=== PATIENT | male | born 1950 | race Caucasian/White ===

== ENCOUNTER 2017-08-01 20:11 | Inpatient (IN) | payer MEDICARE, OTHER ==
[~2017-08-01] VITALS: Ht 165.1 cm; Wt 70.6 kg
[~2017-08-01 20:11] MED LIST: ADULT LOW DOSE81 MG PO; ADVAIR 250-501 EACH IH; ADVAIR 500-501 EACH IH; ADVAIR 500-501 EACH INH; ALBUTEROL SULF8.5 GM INH; ALBUTEROL2.5 MG/3 M IH; ALBUTEROL2.5 MG/3 M INH; ASPIR-TRIN325 MG PO; ASPIRIN325 MG PO; AZITHROMYCIN500 MG PO; BENZONATATE100 MG PO; CEFUROXIME500 MG PO; CELEXA10 MG PO; CENTRAL-VITE H1 EACH PO; CITALOPRAM HBR10 MG PO; CLOTRIMAZOLE10 MG MM; CODEINE-GUAIFE120 ML PO; CYCLOBENZAPRINE10 MG PO; CYCLOBENZAPRINE5 MG PO; D3 DOTS2000 UNIT PO; DALIRESP500 MCG PO; DIFLUCAN100 MG PO; DOXYCYCLINE HY100 MG PO; FLEXERIL5 MG PO; FOLTX TABLET1 EAC1; HYDROCORTISO453.6 GM TOP; IBUPROFEN200 MG PO; IPRAT-ALBUT 0.5-3 ML INH; LEVALBUTER1.25 MG/0. INH; LEVAQUIN500 MG PO; LEVAQUIN750 MG PO; LEVOFLOXACIN500 MG PO; MULTI VITAMIN1 EACH PO; NICORETTE4 M1 BC; NICORETTE4 M1 BUCCAL; NYSTATIN100000 UN1 MT; NYSTATIN15 GM TOP; OMEPRAZOLE20 MG PO; OXISTAT TOP; OXISTAT TP; PREDNISONE10 MG PO; PREDNISONE20 MG PO; PREDNISONE5 MG PO; PROMETHAZINE-COD5 ML PO; SPIRIVA18 MCG IH; SPIRIVA18 MCG INH; SYNTHROID75 MCG PO; TESSALON PERLE100 MG PO; VENTOLIN HFA18 GM; VIAGRA100 MG PO; VITAMIN E1000 UNIT PO; XOPENEX CO1.25 MG/0. INH; XOPENEX1.25 MG/3 INH; [UNRECOGNIZED DRUG - OTHER]
[2017-08-01] MEDS ORDERED: LEVOTHYROXINE75 MCG PO (20:27)
[2017-08-01] MEDS ORDERED: DALIRESP500 MCG PO (20:28)
[2017-08-01] MEDS ORDERED: AZITHROMYCIN500 MG PO (20:30)
[2017-08-01] MEDS ORDERED: PREDNISONE20 MG PO (20:31)
[2017-08-01] MEDS ORDERED: CITALOPRAM HBR10 MG PO (20:34)
[2017-08-01] MEDS ORDERED: MUCINEX FAST-M180 M3 PO (20:37)
[2017-08-01] MEDS ORDERED: HYDROCODON-ACE1 EA10 PO (20:39)
--- NOTE | 2017-08-01 23:31 | NUR ---
REPORT RECV'D FROM RAKEL IN ER. PT TO BE TRANSPORTED TO ROOM 122.
--- NOTE | 2017-08-01 23:40 | NUR ---
PT ARRRIVED TO THE FLOOR VIA STRETCHER FROM ED. PT ABLE TO STAND AND TRANSFER SELF TO BED WITH STANDBY ASSIST. QUICK ADMISSION COMPLETED. WHEN ASKING PT ABOUT DESPOSITION OF VALUABLES, HE STATED HE HAD SOME AT BEDSIDE, DECLINED LOCKING IN SAFE WHEN ASKED. PT REQUESTED 02 EXTENSION TUBING, GIVEN. BOX LUCH GIVEN PER PT REQUEST. PULSE OX IN PLACE. TELE #[address]. PT DENIES DIZZINESS AT THIS TIME. PT ADVISED OKAY TO BE INDEPENDENT IN ROOM, ADVISED TO CALL IF DIZZINESS OCCURS. MD ORDERS REVIEWED. NO FURTHER NEEDS AT THIS TIME. CALL LIGHT IN PLACE.
--- NOTE | 2017-08-02 01:00 | NUR ---
IN TO CHECK ON PT. PT UP TO USE BATHROOM INDEPENDENTLY. NO FURTHER NEEDS AT THIS TIME. CALL LIGHT IN REACH.
--- NOTE | 2017-08-02 03:26 | NUR ---
IN TO CHECK ON PT. IV DISTAL OCC, ARM REPOSITIONED. PT ATTEMPTING TO SLEEP. ASSESSMENT COMPLETE. NO FURTHER NEEDS AT THIS TIME. CALL LIGHT IN REACH.
--- NOTE | 2017-08-02 06:05 | NUR ---
PT ADMITTED TO FLOOR DURING SHIFT FOR COPD. PT IS A CHRONIC HOME O2 USER. LUNG SOUNDS ARE DEMINISHED WITH CRACKLES HEARD IN THE RLL. PULSE OX IN PLACE, O2 PER NC @ 2.5L. PT ON TELE #8, SINUS TACHYCARDIA. TACHYCARDIA UP TO 120 BPM DURING ACTIVITY. REGULAR DIET, TOLERATES WELL. AAOX3, INDEPENDENT IN ROOM. CALL APPROP.
--- NOTE | 2017-08-02 09:40 | NUR ---
PT AWAKE IN BED, INDEPENDENT IN ROOM. PT DENIES PAIN OR NAUSEA. STATES BREATHING IS "WORSE THAN NORMAL BUT BETTER THAN WHEN I GOT HERE." EXPIRATORY WHEEZES, AND COURSE LUNG SOUNDS NOTED. PT SATTING 94% ON 2L NC. CALL LIGHT WITHIN REACH.
--- NOTE | 2017-08-02 13:34 | NUR ---
PT RESTING QUIETLY IN BED, EYES CLOSED, RESP EVEN AND UNLABORED.
--- NOTE | 2017-08-02 15:04 | NUR ---
PT RECIEVED LATE BREAKFAST SO IS HAVING LATE LUNCH AT THIS TIME. DENIES NEEDS OR CONCERNS. CALL LIGHT WITHIN REACH.
--- NOTE | 2017-08-02 18:15 | NUR ---
PT SITTING UP IN BED EATING DINNER INDEPENDENTLY. PT GIVEN CUP OF ICE PER PT REQUEST. SATTING 95% ON 2L NC. CALL LIGHT WITHIN REACH.
--- NOTE | 2017-08-02 19:10 | NUR ---
BEDSIDE REPORT RECEIVED FROM OFFGOING NURSE. PT SITTING UP IN BED, FINSHED DINNER. PT DENIES NEEDS AT THIS TIME. CALL LIGHT WITHIN REACH.
--- NOTE | 2017-08-02 21:00 | NUR ---
PT ASSESSMENT COMPLETE. PT REPORTS SOB WITH EXERTION. O2 IN PLACE AT 2.5 LPM. NEBULIZER TX ADMINISTERED. RHONCHI NOTED TO ALL LUNG LERMA, DO NOT CLEAR WITH COUGH. PT EXPERIENCING OCCASIONAL, DRY, NON-PRODUCTIVE COUGH. CONTINUOUS PULSE OX IN PLACE WITH SAO2 @ 94%. PT DENIES PAIN OR NAUSEA. DENIES OTHER NEEDS AT THIS TIME. CALL LIGHT WITHIN REACH.
--- NOTE | 2017-08-02 21:03 | EKG ---
[facility] [address] [place], [place] [address] Signed Sinus tachycardia Possible Left atrial enlargement Borderline ECG No previous ECGs available Confirmed by PRADEEP HOPKINS MD ([id number]) on 08/02/2017 9:03:05 PM Electronically Signed By: PRADEEP HOPKINS MD [id number]/02/[id number] PATIENT NAME: VALENTIN ENCISO Electrocardiogram DATE OF : 46 PHYSICIAN: PRADEEP HOPKINS MD REPORT #: [id number] REPORT IS CONFIDENTIAL AND NOT TO BE RELEASED WITHOUT AUTHORIZATION
--- NOTE | 2017-08-02 22:30 | NUR ---
PT UP TO USE THE BATHROOM. REQUESTS NEW FINGER SENSOR FOR PULSE OXIMETER AND HUMIDIFICATION FOR THE O2. BOTH PROVIDED. PT SITTING UP IN BED. STATES THAT HE IS GOING "TO SIT UP AND WATCH TV FOR A WHILE", AND THEN PLANS "TO GO TO BED". PT DENIES OTHER NEEDS AT THIS TIME. CALL LIGHT WITHIN REACH.
--- NOTE | 2017-08-03 00:30 | NUR ---
PT LYING IN BED WATCHING TV. SCHEDULED NEB ADMINISTERED. PT REQUESTS ASSISTANCE STRAIGHTENING BED OUT. DENIES SOB. PT CONTINUES TO HAVE INTERMITENT COUGH, STATES THAT HE IS STARTING TO PRODUCE SMALL AMOUNT OF MUCOUS. TESSALON ADMINISTERED. PT DENIES OTHER NEEDS AT THIS TIME. CALL LIGHT WITHIN REACH.
--- NOTE | 2017-08-03 03:29 | NUR ---
PT RESTING IN BED WITH EYES CLOSED. RESPIRATIONS EVEN AND UNLABORED. SA02 95%. PT SNORING AUDIBLY. APPEARS TO BE SLEEPING. CALL LIGHT WITHIN REACH.
--- NOTE | 2017-08-03 04:58 | NUR ---
PT AWAKE UNTIL AROUND MIDNIGHT. SLEPT WELL REST OF SHIFT. O2 @ 2.5 LPM. RHONCI OFF AND ON THROUGHOUT SHIFT. OCCASSIONAL PRODUCTIVE COUGH. CONTINOUS PULSE OX IN PLACE. SINUS TACH, INCREASES WITH MOVEMENT. REGULAR DIET. IND IN ROOM. UO QS. LR @ 100.
--- NOTE | 2017-08-03 05:42 | NUR ---
PT ASSESSMENT COMPLETE WHILE PT AWAKE. PT DENIES PAIN, NAUSEA, SOB. RHONCI CONTINUE TO ALL LUNG LERMA. DO NOT CLEAR WITH COUGH. PT DENIES COUGHING, STATES THAT HE HAS BEEN SLEEPING. O2 @ 2.5 LPM VIA NC. CONTINUOUS PULSE OX IN PLACE. PT DENIES NEEDS AT THIS TIME. FALLS BACK TO SLEEP EASILY. CALL LIGHT WITHIN REACH.
--- NOTE | 2017-08-03 07:15 | NUR ---
BEDSIDE HANDOFF REPORT RECEIVED FROM [facility] TEACHER RN. PT SLEEPING, LEFT UNDISTUBRED.
--- NOTE | 2017-08-03 09:09 | NUR ---
PT RESTING IN BED, EATIN BREAKFAST. PT LUNG SOUNDS WITH RHONCHI, COARSE AND DIMINISHED BASES. PT WITH OCCASIONAL COUGH. O2 SATS 96%. PT DENIES CHEST PAIN. PT TOLERATING REGULAR DIET. IV FLUIDS INFUSING AT 100 ML/HR. PT WITH TRACE EDEMA TO LLE, CMS INTACT. PT DENIES NEEDS AT THIS TIME.
--- NOTE | 2017-08-03 10:10 | NUR ---
ASSUMED CARE OF PT. RECIEVED FACE TO FACE REPORT FROM TELLO Antonio PT RESTING IN BED WATCHING TV. PULSE OX IN PLACE. 02 97% ON 2LNC, HR TACHY AT 110. PT ALERT AND ORIENTED. IV INFUSING WNL. DENIES NEEDS OR CONCERNS AT THIS TIME. CALL LIGHT WITHIN REACH. PT INDEPENDENT IN ROOM.
[2017-08-03] MEDS ORDERED: SUDOGEST60 MG PO (11:23)
[2017-08-03] MEDS ORDERED: SPIRIVA RESPIMAT4 GM INH (11:27)
[2017-08-03] MEDS ORDERED: PREDNISONE10 MG PO (11:30)
--- NOTE | 2017-08-03 13:10 | NUR ---
PT SITTING UP IN BED AWAKE. INDEPENDENT IN ROOM. VSS. PT DENIES NEEDS OR CONCERNS AT THIS TIME. CALL LIGHT WITHIN REACH.
--- NOTE | 2017-08-03 16:30 | NUR ---
PT RESTING IN BED WITH EYES CLOSED, RESP EVEN AND UNLABORED. SATTING 97% ON 2L NC.
--- NOTE | 2017-08-03 18:22 | NUR ---
PT SITTING UP IN BED EATING DINNER, WATCHING TV. DENIES NEEDS OR CONCERNS. CALL LIGHT WITHIN REACH.
--- NOTE | 2017-08-03 20:43 | NUR ---
PT IS SITTING UP ON EDGE OF BED PLAYING GAMES ON COMPUTER, IN GOOD SPIRITS, NO RESP DISTRESS, OCCASIONAL LOOSE COUGH. REMAINS AFEBRILE, SCHEDULED HS MEDS GIVEN. VEE PATENT TO [facility] PATENT AND SECURE.
--- NOTE | 2017-08-03 23:48 | NUR ---
PATIENT CALLED WANTS TO TAKE SHOWER. IV SITE WRAPPED. GOWN AND PANT GIVEN. CHANGED THE BED LINEN.
--- NOTE | 2017-08-04 00:47 | NUR ---
PATIENT CALLED. ASKED 2 COLA AND CUP OF ICE.
--- NOTE | 2017-08-04 08:00 | NUR ---
patient watching tv in no distress. O2 in place @2L NC. Sats 96%. PAtient denies needs.
--- NOTE | 2017-08-04 08:45 | NUR ---
Patient given am meds, patient states "I'll probably be ready to go home tomorrrow." No requests at this time.
--- NOTE | 2017-08-04 08:50 | NUR ---
patient sitting up in bed with nurse in room. patient refused to bathe or shower and might do so tonight. he states that he has done oral care, shaved and washed his hands and face. he has no other needs at this time. call button in reach.
--- NOTE | 2017-08-04 10:20 | NUR ---
PATIENT RESTING IN BED WATCHING TV. CALL BUTTON IN REACH. NO OTHER NEEDS AT THIS TIME.
--- NOTE | 2017-08-04 11:29 | NUR ---
Patient watching tv in no distress.
--- NOTE | 2017-08-04 13:19 | NUR ---
Patient eating lunch, denies needs at this time. Call light in reach.
--- NOTE | 2017-08-04 14:12 | NUR ---
CHECKED ON PT-HE WAS INTENTLY WATCHING A TV PROGAM. HE LET ME KNOW HE WAS OK AND WAIVED. WILL CONTINUE TO FOLLOW NEEDED.
--- NOTE | 2017-08-04 16:15 | NUR ---
PT IN BED AWAKE. DOING WELL. PATIENT STATED HE DID NOT NEED ANYTHING. PT HAS CALL LIGHT IN REACH.
--- NOTE | 2017-08-04 17:07 | NUR ---
VITAL SIGNS TAKEN, PATIENT DENIES NEEDS AT THIS TIME.
--- NOTE | 2017-08-04 18:47 | NUR ---
PATIENT SITTING UP IN BED WATCHING TV IN NO DISTRESS.
--- NOTE | 2017-08-04 19:22 | NUR ---
PATIENT INDEPENDANT IN ROOM, AT BASELINE. WEARING 02 2L NC. LIKELY WILL DC HOME TOMORROW.
--- NOTE | 2017-08-04 20:17 | NUR ---
PT ASSESSMENT COMPLETE. PT DENIES ANY PAIN, N/V. PT STATES HIS BREATHING IS AT BASELINE, SOB WITH EXERTION, DENIES SOB AT REST. IV SALINE LOCKED. PT ON 2 LPM O2 VIA NASAL CANNULA-CHRONIC, SATS 95% AND HR 116 PER CONTINUOUS PULSE OXIMETER. HS MEDS GIVEN. PT SITTING UP IN BED WATCHING TABLET. CALL LIGHT WITHIN REACH. PT DENIES ANY FURTHER NEEDS AT THIS TIME.
--- NOTE | 2017-08-04 21:07 | NUR ---
PT IN BED, USING HIS ELECTRONIC DEVICE. COUGING FREQUENTLY. VITALS DONE, O2 REMAINS ON. REQUESTED A SNACK.
--- NOTE | 2017-08-04 22:51 | NUR ---
PT UP INDEPENDENTLY IN ROOM. PT REQUESTING SODA AND SHOWER "IN AN HOUR", WILL LET STAFF KNOW WHEN HE IS READY. SATS 95% ON 2 LPM O2. CALL LIGHT WITHIN REACH. PT DENIES ANY FURTHER NEEDS AT THIS TIME.
--- NOTE | 2017-08-04 22:52 | NUR ---
PATIENT ASKED FOR CLEAN TOWELS, GOWN AND PANTS. PATIENT IS GOING TO TAKE SHOWER. PATIENT ALSO ASKED REGULAR COLA AND HALF CUP OF ICE.
--- NOTE | 2017-08-05 01:14 | NUR ---
PT SITTING UP IN BED WATCHING TABLET. SATS 97% ON 2 LPM, PT DENIES ANY SOB AT THIS TIME. CONTINUOUS PULSE OXIMETER IN PLACE. CALL LIGHT WITHIN REACH. PT DENIES ANY FURTHER NEEDS AT THIS TIME.
--- NOTE | 2017-08-05 04:17 | NUR ---
PT SLEEPING, RR EVEN AND UNLABORED. PT APPEARS COMFORTABLE, NO SIGNS OF DISTRESS. SATS 96% ON 2 LPM PER CPOX. CALL LIGHT WITHIN REACH.
--- NOTE | 2017-08-05 05:21 | NUR ---
PT HAD AN UNEVENTFUL NIGHT. PT AMBULATES INDEPENDENTLY. SOB WITH EXERTION. NEAR BASELINE. 2 LPM O2 VIA NASAL CANNULA, CHRONIC. ALERT AND ORIENTED. SHOWERED THIS SHIFT. NEBS/STEROIDS/ABX. CPOX IN PLACE. TOLERATING REGULAR DIET, SALINE LOCKED.
--- NOTE | 2017-08-05 07:29 | NUR ---
PT REPORT RECEIVED FROM KELLY BUCKLEY. PT CURRENTLY SLEEPING AND WOULD LIKE TO BE LEFT SLEEPING PER INA.
--- NOTE | 2017-08-05 09:00 | NUR ---
PATIENT SITTING ON BED. RN IN ROOM. PATIENT STATES THAT HE HAS DONE ALL MORNING ADLS AND DOES NOT NEED ANYTHING.
--- NOTE | 2017-08-05 09:15 | NUR ---
PT FINISHING UP BREAKFAST. RATHER SHORT VERBALLY WITH CONTROL INTEGRATION ENGINEER. PT STATES HE IS READY TO GO HOME AND FEELS HE IS AT HIS BASELINE. HAS NOT HAD ANY SLEEP SINCE ADMIT REPORTS PT. STATES HE IS BREATHING MUCH BETTER.
--- NOTE | 2017-08-05 12:30 | NUR ---
PATIENT GETTING READY TO BE DISCHARGED. RN IN ROOM TO SEE. NO NEEDS.
[2017-08-05] MEDS ORDERED: CEFUROXIME500 MG PO (12:37)
[2017-08-05] MEDS ORDERED: LAMISIL250 MG PO (12:38)
[2017-08-05] MEDS ORDERED: PREDNISONE20 MG PO (12:41)
--- NOTE | 2017-08-05 13:31 | NUR ---
PT WAITING FOR FOR DISCHARGE. PT IN BED WATCHING TV. DENIES CONCERNS.
--- NOTE | 2017-08-05 14:40 | NUR ---
PATIENT SITTING AT THE EDGE OF HIS BED. 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 WOULD LIKE TO GET READY WHEN HE FINDS OUT. NO OTHER NEEDS AT THIS TIME. CALL BUTTON IN REACH.
--- NOTE | 2017-08-05 15:23 | NUR ---
IV REMOVED WNL. DISCHARGE INSTRUCTIONS GIVEN. PT VERBALIZED UNDERSTANDING. ASKED FOR A RELEASE FORM TO GET HIS MEDICAL RECORDS PRINTED. FILLING OUT.
== END 2017-08-05 17:50 | disposition home or self-care (01) | DRG 191 ==
LOC: ED 20:11 → MS 22:43
PROVIDERS: ADMIT Internal Medicine
DX: J44.1 Chronic obstructive pulmonary disease with (acute) exacerbation (principal); R65.10 Systemic inflammatory response syndrome (SIRS) of non-infectious origin without acute organ dysfunction; B35.4 Tinea corporis; R73.03 Prediabetes; E03.9 Hypothyroidism, unspecified; K21.9 Gastro-esophageal reflux disease without esophagitis; F39 Unspecified mood [affective] disorder; N52.9 Male erectile dysfunction, unspecified; J44.0 Chronic obstructive pulmonary disease with (acute) lower respiratory infection; J20.9 Acute bronchitis, unspecified; Z23 Encounter for immunization
CPT/HCPCS: 36415; 71020; 80053; 83036; 83735; 83880; 84484; 85025; 90662; 93005; 93010; 94640; 94668; 94762; G0008; J0696; J1650; J2930; J7030; J7120

== ENCOUNTER 2017-12-03 21:04 | Inpatient (IN) | payer MEDICARE, OTHER ==
[~2017-12-03] VITALS: Ht 165.1 cm; Wt 69.6 kg
[~2017-12-03 21:04] MED LIST changes: -D3 DOTS2000 UNIT PO; +HYDROCODON-ACE1 EA10 PO; +LAMISIL250 MG PO; +LEVOTHYROXINE75 MCG PO; +MUCINEX FAST-M180 M3 PO; +SPIRIVA RESPIMAT4 GM INH; +SUDOGEST60 MG PO; +VITAMIN D5000 UNIT PO
--- NOTE | 2017-12-04 01:02 | NUR ---
PT ARRIVED TO FLOOR, HE IS TUCKED INTO BED AND ORIENTED TO ROOM. PT IS ON 2.5L NC. CALL LIGHT IS WITHIN REACH AND PT IS ALERT AND ORIENTED.
--- NOTE | 2017-12-04 02:04 | NUR ---
PT IS AWAKE IN BED HELPED HIM GET HIS PERSONAL BELONGINGS PUT AWAY AND READY TO SLEEP. PT HAS NO OTHER REQUESTS AT THIS TIME.
--- NOTE | 2017-12-04 05:18 | NUR ---
ASSISTED PATIENT TO SIDE OF BED TO USE URINAL. PATIENT BECOMES SHORT OF BREATH EASILY, RECOVERS QUICKLY ONCE BACK IN BED. O2 SATURATION IS 97% ON 2.5L O2 VIA NC. DENIES FURTHER NEEDS AT THIS TIME. CALL LIGHT WITHIN REACH.
--- NOTE | 2017-12-04 06:50 | EKG ---
[facility] [address] [facility] [place], [place] [address] Signed Sinus tachycardia Otherwise normal ECG When compared with ECG of 01-AUG-2017 20:22, No significant change was found Confirmed by BOOM REYES MD ([id number]) on 12/04/2017 6:49:58 AM Electronically Signed By: BOOM REYES MD 12/04/17 0650 PATIENT NAME: VALENTIN ENCISO Electrocardiogram DATE OF : 46 PHYSICIAN: BOOM REYES MD REPORT #: [id number] REPORT IS CONFIDENTIAL AND NOT TO BE RELEASED WITHOUT AUTHORIZATION
--- NOTE | 2017-12-04 09:10 | NUR ---
PATIENT UP RESTING IN BED, RT WITH BREATHING TREATMENT. PATIENT APPEARS AWARE OF MEDICAL CONDITION. NO COMPLAINTS OF PAIN. STATES " MY BREATHING IS ON THE DECLINE AND THAT'S WHY I AM HERE". PATIENT SELF CHECKING O2 SATURATIONS. ADMINISTERED MORNING MEDICATION. URINAL IN REACH. DISCUSSED POC FOR DAY. PLAN FOR PATIENT TO REST, AND LIMIT EXERTION.
--- NOTE | 2017-12-04 10:33 | NUR ---
PT ASKED FOR ASSISTANCE TO USE THE URINAL, PT VOIDED AND IS NOW BACK IN BED RESTING SAFELY WITH CALL LIGHT IN REACH
--- NOTE | 2017-12-04 14:09 | NUR ---
PATIENT COMPLAINTS OF HEADACHE. NEW ORDER FOR TYLENOL PO. PATIENT APPEARS TO BE RESTING WELL, WATCHING TELEVISION. PATIENT STATES " BREATHING TREATMENTS ARE REALLY HELPING". VS STABLE.
--- NOTE | 2017-12-04 14:10 | NUR ---
PT IS RESTING IN BED SAFELY WITH CALL LIGHT IN REACH PT DID NOT NEED ANYTHING ELSE AT THE MOMENT
[2017-12-04] MEDS ORDERED: LEVOFLOXACIN500 MG PO (14:39)
[2017-12-04] MEDS ORDERED: CYCLOBENZAPRINE10 MG PO (14:40)
[2017-12-04] MEDS ORDERED: VIAGRA100 MG PO (14:40)
[2017-12-04] MEDS ORDERED: VENTOLIN HFA18 GM INH (14:41)
[2017-12-04] MEDS ORDERED: LEVOTHYROXINE100 MCG PO (14:41)
[2017-12-04] MEDS ORDERED: GUAIFENESIN AC473 ML PO (15:04)
[2017-12-04] MEDS ORDERED: HYDROCORTISO28.35 GM TOP (15:06)
--- NOTE | 2017-12-04 18:39 | NUR ---
PATIENT BED REST TODAY, DESAT WITH EXERTION. O2 95% ON 2.5 L NC. COMPLAINTS OF HAMMOND, NEW ORDER FOR TYLENOL. ADMINISTERED COUGH MEDICINE AND TESSAN PEARLS. NON PRODUCTIVE COUGH. LUNG SOUNDS COURSE WITH ADVENTISIOUS SOUNDS THROUGHOUT. IV SOLUMEDROL. URINAL AT BEDSIDE. EATING WELL. AAOX3.
--- NOTE | 2017-12-04 20:00 | NUR ---
RECEIVED REPORT AT 1900. FOUND PT IN BED WATCHING TV. PT WANTS A NASAL SPRAY FOR HIS STUFFY NOSE. OTHERWISE PT DENIED SOB, PAIN AND ANY OTHER CONCERNS.
--- NOTE | 2017-12-04 20:40 | NUR ---
02 ON, RT IN ROOM FOR [facility] TX AND ASSESSMENT. PT USES URINAL, VOIDING CLEAR YELLOW URINE, SOB WITH EXERTION NOTED. NO OTHER C/O PAIN OR REQUESTS
--- NOTE | 2017-12-04 21:59 | NUR ---
VITALS AND I&OS DONE AND CHARTED. HELPED PT WITH HIS URINAL. BEDSIDE TABLE AND CALL LIGHT WITHIN REACH. PT NEEDS NOTHING ELSE AT THIS TIME.
--- NOTE | 2017-12-04 22:30 | NUR ---
V/S ARE WDL, ALL LEFT LOBES HAVE EXIRATORY WHEEZING PRESENT, ALL RIGHT LOBES ARE CLEAR. ABD SOUNDS ARE PRESENT, NO PERIPHERAL EDEMA NOTED. PT ALSO NEEDED SOME TUMS, MD HARTMAN WAS CALLED ABOUT NASAL SPRAY AND TUMS, BOTH OF WHICH WERE ORDERED BY HER. PT HAS SOB IF HE ATTEMPS TO WALK ONLY. PT IS ABLE TO STAND AND USE THE URINAL WITHOUT ANY PROBLEMS. PT IS STILL ON 2L OF O2 NC.
--- NOTE | 2017-12-05 00:10 | NUR ---
medicated with 1 tessalon perles and robutossin w/ codeine 5cc per c/o cough. O2 2.5L n/c in place, sob with exertion present. no other c/o
--- NOTE | 2017-12-05 00:30 | NUR ---
PT IS AWAKE WATCHING TV. PT HAS NO NEEDS AT THIS TIME.
--- NOTE | 2017-12-05 02:03 | NUR ---
ASSISTED PT WITH BRUSHING HIS TEETH AND URINAL. PT IS SITTING AT SIDE OF BED WASHING HIS FACE AND DOING DENTURE CARE.
--- NOTE | 2017-12-05 02:12 | NUR ---
VITALS AND I&OS DONE AND CHARTED. BEDSIDE TABLE AND CALL LIGHT WITHIN REACH. PUT AWAY DIRTY TOWELS HE USED. THREW AWAY AN OLD CUP AND TOOK AWAY EMPTY SODA CAN. PT NEEDS NOTHING ELSE AT THIS TIME WHEN ASKED.
--- NOTE | 2017-12-05 04:12 | NUR ---
PT IS SLEEPING AT THIS TIME.
--- NOTE | 2017-12-05 05:42 | NUR ---
V/S ARE WDL SO FAR. PT ONCE SETTLED FOR THE NIGHT SLEPT WELL. WITH FIRST ASSESSMENT ALL RIGHT LOBES HAD EXPIRATORY WHEEZING, LEFT LOBES WERE CLEAR. WITH SECOND ASSESSMENT ALL LOBES WERE CLEAR. PT CAN STAND BUT NOT WALK DUE TO SOB. NO NEW CONCERNS FOR THIS PT SO FAR.
--- NOTE | 2017-12-05 08:10 | NUR ---
ANSWERED CALL LIGHT. NOW IS SITTING UP IN BED EATING HIS BREAKFAST. SET HIM UP FOR A BED BATH AFTER BREAKFAST.
--- NOTE | 2017-12-05 13:11 | NUR ---
PT AWAKE. STATES HE HAS OXYGEN AT HOME, HAS CPAP (DOESN'T USE IT NIGHTLY). NO STAIRS. PATIENT STATES HE SEES DR HARDY IN [place] FOR PULMONOLOGY. PATIENT AWARE HIS PCP IS RETIRING IN [place]. HE IS OPEN TO HELP IN FINDING NEW PCP. HE IS OK WITH US CONTACTING HIM AT HOME TO HELP HIM WITH THIS PROCESS. PT STATES HE HAS ALL HE NEEDS TO GO HOME SAFELY AT DISCHARGE.
--- NOTE | 2017-12-05 14:01 | NUR ---
patient given solumedrol at this time. vitals and i and o taken by kitchen worker at this time
--- NOTE | 2017-12-05 14:58 | NUR ---
ADMINISTERED COUGH MEDICINE WITH CODEINE. PATIENT COMPLAINS OF COUGH. PATIENT SITTING UP AT EDGE OF BED WATCHING TELEVISION. PATIENT REPORTS FEELING STRONGER TODAY. UP TO RECLINER.
--- NOTE | 2017-12-05 19:23 | NUR ---
PATIENT REFUSED TO GET UP, VERY ABRASIVE AND PARTICULAR. PATIENT ATE WELL. BREATHING IMPROVED WITH NEB TREATMENTS. VS STABLE THROUGHUT DAY, USING URINAL. CALL LIGHT WITHIN REACH. IV LEVAQUIN ANTIBIOTIC TREATMENT. COMPLAINTS OF COUGH. ADMINISTERED COUGH SYRUP WITH CODEINE PRN X2 TODAY.
--- NOTE | 2017-12-05 19:40 | NUR ---
BEDSIDE REPORT RECEIVED FROM KELLY QUINONEZ. PT SITTING UP IN BED, ON 2.5 L OXYGEN BY JOEY. IV SALINE LOCKED AT THIS TIME. PT HAS CALL LIGHT, PERSONAL SUPPLIES IN REACH. PT STATED HE DISCUSSED PLAN FOR SHOWER WITH [facility]. NO ADDITIONAL REQUESTS AT THIS TIME, PT DENIES ANY PAIN.
--- NOTE | 2017-12-05 19:55 | NUR ---
HELPED PT GET HIS URINAL AND GARBAGE AND HAND POWER PLANT SUPERINTENDENT SET UP FOR HIM TO GO PEE. GOT TH E BATHROOM TOILETRIES SET UP FOR HIM TO TAKE A SHOWER. PT STATED HE WOULD LIKE TO TAKE A SHOWER AT ABOUT 8:00 OR 8:30PM. I ASKED HIM TO CALL WHEN HE IS READY AND I WOULD HELP HIM TO THE BATHROOM. HE SAID OK HE WOULD.
--- NOTE | 2017-12-05 20:40 | NUR ---
VITALS AND I&OS DONE AND CHARTED. PT NEEDS NOTHING ELSE AT THIS TIME. BEDSIDE TABLE AND CALL LIGHT IN REACH. NOTIFIED PT RN B/P A BIT HIGHER THAN LAST TIME.
--- NOTE | 2017-12-05 22:04 | NUR ---
HELPED PT GET HIS URINAL, GARBAGE AND HAND CHANNEL ROUGHER SO HE COULD GO PEE.
--- NOTE | 2017-12-05 22:05 | NUR ---
EMPTIED URINAL. PUT GARBAGE AND REHABILITATION COUNSELLOR BACK. PT NEEDS NOTHING MORE AT THIS TIME. BEDSIDE TABLE AND CALL LIGHT IN REACH.
--- NOTE | 2017-12-05 22:30 | NUR ---
IN PT ROOM FOR ASSESSMENT, ADMINISTERED PRN COUGH MEDICINE. PT ON 2.5 L OXYGEN AT THIS TIME, DENIES SOB. LYING IN BED, ALERT, ORIENTED X 3. PT DENIES ANY PAIN. WHEEZES HEARD THROUGHOUT RIGHT LUNG LOBES, CLEAR ON AUSCULTATION IN LEFT LUNG LOBES. HR TACHYCARDIC, ON TELE, REGULAR RHYTHM. IV WNL. PT GIVEN COLA REQUESTED, NO ADDITIONAL REQUESTS AT THIS TIME. WAITING FOR SHOWER ASSISTANCE FROM [facility].
--- NOTE | 2017-12-06 00:58 | NUR ---
PT IN [facility] IN ROOM TO ASSIST. PT ON 2.5 L OXYGEN AT THIS TIME.
--- NOTE | 2017-12-06 01:08 | NUR ---
HELPED PT GET EVERYTHING READY FOR A SHOWER. STAYED IN THE ROOM WHILE HE WAS IN THE SHOWER. HELPED PT GET THINGS CLEANED UP AFTER HIS SHOWER. HOOKED HIM BACK UP TO THE TELE, REPLACED ADONAY. BEDSIDE TABLE AND CALL LIGHT WITHIN REACH. PT SAYS HE NEEDS NOTHING ELSE AT THIS TIME. CHANGED BED LINENS ALSO.
--- NOTE | 2017-12-06 01:50 | NUR ---
IN PT ROOM, PT OUT OF SHOWER, SITTING UP IN BED WATCHING TV, AWAKE AND ALERT. PT ENCOURAGED TO REST/SLEEP. PT HAS NO REQUESTS AT THIS TIME. CALL LIGHT IN LAP, PT STATES HE WILL "PROBABLY DOZE OFF NOW".
--- NOTE | 2017-12-06 02:17 | NUR ---
PER PT REQUEST I BROUGHT HIM TWO WARM BLANKETS.
--- NOTE | 2017-12-06 04:00 | NUR ---
PT SLEEPING AT THIS TIME, EYES CLOSED, LIGHTS OFF IN ROOM, VISIBLE CHEST RISE.
--- NOTE | 2017-12-06 05:30 | NUR ---
VITALS AND ASSESSMENT COMPLETE AT THIS TIME, PTS LUNGS DIMINISHED THROUGHOUT ALL LOBES, WHEEZES HEARD, PT COMPLAINS OF SOB W EXERTION, STANDING TO USE URINAL.HR 116 AT THIS TIME. PT GIVEN PRN COUGH MEDICINE, SOLUMEDROL. IV WNL, FLUSHES WELL. PT GIVEN FRESH ICE WATER FROM KELLY SHOOK. NO ADDITIONAL REQUESTS AT THIS TIME, CONTINUES ON 2.5 L OXYGEN. CALL LIGHT IN REACH, LIGHTS OFF IN ROOM.
--- NOTE | 2017-12-06 06:25 | NUR ---
PT ALERT ORIENTED X 3, PLEASANT THROUGHOUT SHIFT. MINIMAL SLEEP THIS SHIFT, HAD A SHOWER IN SCREEN TENDER HOURS. PT CONTINUES ON 2.5 L OXGYEN BY NC, AND C/O SOB WITH AMBULATION, SHOWER, AND SITTING UP TO VOID. PT HAS DENIED PAIN THROUGHOUT SHIFT, WHEEZES HEARD IN LUNGS, RECEIVED PRN BREATHING TREATMENT X 1. CONTINUES TO REQUEST PRN COUGH MEDICINE.
--- NOTE | 2017-12-06 07:45 | NUR ---
REPORT RECEIVED FROM KELLY MELISSA. PT IS AWAKE AND PLEASANT. DENIES ANY NEEDS.
--- NOTE | 2017-12-06 09:37 | NUR ---
AM MEDS ADMINSTERED. LEVOFLOX. INFUSING. PT UP TO USE URINAL AT BEDSIDE. AWAKE AND ORIENTED. DENIES PAIN.
--- NOTE | 2017-12-06 10:20 | NUR ---
PT IS RESTING IN BEED SAFELY WITH CALL LIGHT IN REACH. PT SHOWERED LATE LAST NIGHT AND DOES NOT WANT TO SHOWER AGAIN TODAY
--- NOTE | 2017-12-06 12:18 | NUR ---
PT SITTING UP IN BED EATING LUNCH. TITRATED TO 2L O2. HOLDING AT 92% DENIES OTHER NEEDS AT THIS TIME.
--- NOTE | 2017-12-06 15:20 | NUR ---
PT LUNG SOUNDS STILL DIMINISHED THROUGHOUT WITH EXPIRATORY WHEEZE. BREATHING IS TACHY BUT APPEARS UNLABORED. PT SAT. WELL WITH 2L NC. DENIES PAIN AND APPEARS COMFORTABLE. DROWSY/NAPPING, BUT EASILY AROUSED.
--- NOTE | 2017-12-06 15:41 | NUR ---
PT IN BED DOING NEB TREATMENT.ADMINISTERED SOLUMEDROL.
--- NOTE | 2017-12-06 16:36 | NUR ---
PT CALLED TO SAY HE WAS SOB. PT SITTING ON SIDE OF BED IN TRIPOD, DEEP BREATHING. STATES HE HAD AN EPISODE OF COUGHING AND COULDN NT RECOVER. BUMPED O2 UP TO 4L. AFTER A FEW MINUTES HIS SATS UP TO 94% AND PT STATES HE IS FEELING BETTER NOW.
--- NOTE | 2017-12-06 16:53 | NUR ---
RT IN TO SEE PT. PT REMAINS SITTING AT SIDE OF BED AND APPEARS TO BE FEELING BETTER.
--- NOTE | 2017-12-06 17:06 | NUR ---
PT CALLED TO HAVE URINE DUMPED. STATES HE IS FEELING MUCH BETTER AND IS GOING TO TAKE A NAP. WILL MICROWAVE DINNER LATER.
--- NOTE | 2017-12-06 21:40 | NUR ---
MEDICATED WITH ROBUTOSSIN AND TESSALON PERLES PER C/O COUGH
--- NOTE | 2017-12-06 23:08 | NUR ---
PATIENT CALLED AND ASK FOR REGULAR COLA, VANILLA ICE CREAM AND CHOCOLATE PUDDING. ALL GIVEN.
--- NOTE | 2017-12-07 02:49 | NUR ---
AWAKE, WATCHING TV, O2 IN PLACE 2.5L N/C. NO C/O PAIN, NO REQUESTS, REPOSITIONS SELF IN BED. NO FURTHER C/O COUGH
--- NOTE | 2017-12-07 05:06 | NUR ---
Pt continues on O2 2.5L NC, improved gait and decreased SOb with exxertion notd thi shift, no c/o pain. c/o cough, was medicated with robutossin and tessalon perles, effective. Gets nebs and solumedrol, Turns self in bed, one stanby assist. Currently in bed resting, cooperative with assessment
--- NOTE | 2017-12-07 07:13 | NUR ---
PT IN BED, SITTING UP, AWAKE, ALERT. DENIED NEEDS. PERSONAL SUPPLIES AND CALL BUTTON IN REACH.
--- NOTE | 2017-12-07 08:57 | NUR ---
PT CALLED STATING HE WOULD LIKE SOME COUGH SYRUP. RN NOTIFIED. URINAL WAS EMPTIED WELL. PT STATES HE HAS NO OTHER NEEDS AT THIS TIME. CALL LIGHT IS IN REACH.
--- NOTE | 2017-12-07 09:07 | NUR ---
PT IN BED, SITTING UPRIGHT, DENIES PAIN. REPORTS THAT HE ATE BREAKFAST, NOTED BINDERY MANAGER WROTE 20% EATEN. PT'S RESPIRATIONS 24, LABORED, ACCESSORY MUSCLES IN USE. PT ON 2.5 L O2. HAD JUST COMPLETED NEB TX PRIOR TO THIS ASSESSMENT. PT REPORTS THAT HE HAS CONTINUED SHORTNESS OF BREATH, BUT THAT IT IS "MUCH BETTER THAN YESTERDAY". LUNGS HAVE EXPIRATORY WHEEZES THROUGHOUT. PESONAL SUPPLIES IN REACH, CALL BUTTON AT SIDE.
--- NOTE | 2017-12-07 10:14 | NUR ---
PT IN BED. HAS LIGHTS OFF, BLINDS CLOSED. ENCOURAGED PT TO ALLOW THIS RN TO OPEN HIS BLINDS, AND TURN ON SOME LIGHT IN ROOM. PT VEHEMENTLY DISAGREED WITH THIS, STATED "DON'T! THIS IS HOW I WANT IT!". EDUCATED PT REGARDING BENEFITS OF HAVING LIGHTS ON, BLINDS OPEN, PT STATED THAT HE STILL WANTED THE LIGHTS OFF, BLINDS CLOSED. PT DENIED PAIN. IS ON 2.5L O2 VIA NC, DENIES SHORTNESS OF BREATH AT THIS TIME.
--- NOTE | 2017-12-07 12:04 | NUR ---
PT SITTING UP IN BED, HOB ELEVATED, EATING LUNCH. AGREED TO GET UP TO RECLINER ONCE HE FINISHES HIS MEAL. DENIED PAIN. PERSONAL SUPPLIES IN REACH, CALL LIGHT IN REACH. PT DENIED NEEDS.
--- NOTE | 2017-12-07 13:13 | NUR ---
PT AMBULATED IN HALLWAY, FROM ROOM 116 TO ROOM 109, WHERE HE RESTED STANDING IN THE CAIN FOR APROXIMATELY 45 SECONDS, THEN AMBULATED BACK TO ROOM 116, WHERE HE SAT UP IN RECLINER. PT WORE 3L O2 VIA NC WHILE UP AMBULATING. PT USED HIS PERSONAL PULSE OXYMETER TO SPOT CHECK HIS OXYGEN SATURATION LEVEL BEFORE, DURING, AND AFTER AMBULATION. SAT 92% ON 3L BEFORE AMBULATION, 89-90% WHILE AMBULATING, 89% UPON RETURNING TO ROOM AND SITTING UP IN RECLINER, AND UP TO 92-93% AFTER APROXIMATELY 60 SECONDS REST IN RECLINER.
--- NOTE | 2017-12-07 13:36 | NUR ---
PT'S VS AND I&O'S TAKEN AND DOCUMENTED. PT IS SITTING UP IN CHAIR WATCHING TV. STATES HE HAS NO NEEDS AT THIS TIME AND WILL CALL IF HE DOES. LINENS STRAIGHTENED AND BED HAS BEEN MADE. CALL LIGHT IS IN REACH.
--- NOTE | 2017-12-07 13:43 | NUR ---
PT SITTING UP IN RECLINER, AT SIDE. PT COUGHING, HACKING, NONPRODUCTIVE COUGH. PT'S LUNGS DIMINISHED BUT CLEAR. PT ON 2.5 L O2 VIA NC. PT DENIED PAIN, HAS PERSONAL SUPPLIES AT SIDE, WELL CALL LIGHT.
--- NOTE | 2017-12-07 14:21 | NUR ---
PT NOW SITTING UP IN BED, HOB ELEVATED TO 54 DEGREES. PT DENIED PAIN, DENIED SHORTNESS OF BREATH. PERSONAL SUPPLIES AND CALL BUTTON IN REACH.
--- NOTE | 2017-12-07 17:39 | NUR ---
PT UP IN BATHROOM, USING TOILET. DENIED NEEDS AT THIS TIME.
--- NOTE | 2017-12-07 18:15 | NUR ---
PT ON 2.5L O2 VIA NC. LUNGS DIMINISHED. PT HAS A LOOSE PRODUCTIVE COUGH, REPORTS EXPECTORATED SPUTUM IS GREEN. ALERT, ORIENTED X 4. HAS DENIED PAIN THIS SHIFT. DID TAKE PRN GUAFENASINE WITH CODIENE THIS AM. TOLERATED PO INTAKE WITHOUT ISSUE. UP INDEPENDANT IN ROOM, AND AMBULATED IN HALLS STANDBY ASSIST. OXYGEN AT 3L VIA NC FOR AMBULATION IN HALLS, PT'S OXYGEN SATURATION LEVEL 89-90% FOLLOWING AMBULATION, TOOK APROXIMATELY 1 MINUTE FOR SATURATION TO INCREASE TO 90-93%. IV SALINE LOCKED. HAD A BM TODAY. PER DR. HOPKINS, PLAN FOR DISCHARGE TO HOME TODAY.
[2017-12-07] MEDS ORDERED: FLUTICASONE PRO16 GM NAS (19:35)
[2017-12-07] MEDS ORDERED: BENZONATATE100 MG PO (19:35)
[2017-12-07] MEDS ORDERED: PREDNISONE20 MG PO (19:37)
--- NOTE | 2017-12-07 19:47 | NUR ---
awake, no c/o pain or resp distress, O2 2.5L NC in place, r14. turns self in bed, coop with assessment
--- NOTE | 2017-12-07 22:48 | NUR ---
PATIENT CALLED. NEED URINAL EMPTY, DONE. NEB TREATMENT, AND NIGHT MEDS, RN BOONE AND KELLY MCKEON AND RT TELLO NOTIFIED.
--- NOTE | 2017-12-07 23:20 | NUR ---
PATIENT RESTING COMFORTABLY IN BED, BREATHING IS EVEN, MILDLY TACHYPNEIC WITH 24 RPM. PRN ROBITUSSIN GIVEN FOR COUGH. DENIES FURTHER NEEDS. CALL LIGHT WITHIN REACH.
--- NOTE | 2017-12-08 00:19 | NUR ---
PATIENT UP TO TAKE SHOWER. DENIES SHORTNESS OF BREATH.
--- NOTE | 2017-12-08 00:22 | NUR ---
PATIENT CALLED WANTING TO TAKE SHOWER. IV SITE WRAPPED. CHANGED BED LINEN. CUP OF ICE AND REGULAR SODA GIVEN PER PATIENT'S REQUEST.
--- NOTE | 2017-12-08 01:14 | NUR ---
PATIENT IS NOW BACK IN BED. CLEANED AND DRIED THE BATHROOM.
--- NOTE | 2017-12-08 03:10 | NUR ---
PATIENT REQUESTING WARM BLANKET. DENIES FURTHER NEEDS. BREATHING IS EVEN, TACHYPNEIC WITH 22 RPM ON 2.5L O2 VIA NC. ASSESSMENT DONE, CALL LIGHT WITHIN REACH.
--- NOTE | 2017-12-08 06:04 | NUR ---
PATIENT RESTING COMFORTABLY IN BED, BREATHING IS EVEN AND UNLABORED. DENIES NEEDS AT THIS TIME. CALL LIGHT WITHIN REACH.
--- NOTE | 2017-12-08 07:00 | NUR ---
PATIENT'S NIGHT WAS UNEVENTFUL. HE HAS BEEN RESTING COMFORTABLY THROUGHOUT SHIFT. PATIENT HAS EXP. WHEEZES ON LEFT SIDE OF LUNGS, WEARS 2.5L O2 AT NIGHT. NO ACUTE CHANGES.
--- NOTE | 2017-12-08 07:06 | NUR ---
PT SLEEPING SOUNDLY. PER REPORT FROM KELLY MCKEON, PT ASKED NOT TO BE DISTURBED AT REPORT TIME IF HE WAS SLEEPING, SO RECIEVED REPORT FROM KELLY MCKEON AT PT'S DOOR. ENTERED ROOM TO VISUALIZE THAT PT IS ON 2.5L O2 VIA NC. PT IS SALINE LOCKED.
--- NOTE | 2017-12-08 07:06 | NUR ---
PT SLEEPING IN ROOM. O2 2.[address] PT REFUSED REPORT AT BEDSIDE PER LINDA MENDOZA. REPORT RECIEVED. PT EYES CLOSED AT THIS TIME. WHITE BOARD UPDATED.
[2017-12-08] MEDS ORDERED: GUAIFENESIN AC473 ML PO (09:00)
[2017-12-08] MEDS ORDERED: LAMISIL250 MG PO (09:03)
--- NOTE | 2017-12-08 09:55 | NUR ---
AM ASSESSMENT COMPLETE. PT ALERT, ORIENTED X 4. LUNGS CTA BUT DIMINISHED THROUGHOUT. PT REMAINS ON 2.5L O2 VIA NC. PT HAS A MOIST NONPRODUCTIVE COUGH. KELLY FITZGERALD REVIEWED DISCHARGE INSTRUCTIONS WITH PT. PT VERBALIZED UNDERSTANDING. PT GIVEN PRINTED DISCHARGE INSTRUCTIONS AND EDUCATION.
--- NOTE | 2017-12-08 10:00 | NUR ---
SPOKE WITH PATIENT IN ROOM. HE STATES HE IS GOING HOME TODAY. HIS WILL BE PICKING HIM UP. HE STATES HE HAS ALL EQUIPMENT HE NEEDS. HE IS IN AGREEMENT TO A FOLLOW UP CALL FROM OUR [facility] LATER THIS WEEK. DISCUSSED THIS WITH [facility] WHO WILL F/U BY PHONE.
--- NOTE | 2017-12-08 10:19 | NUR ---
MORNING ASSESSMENT COMPLETE. PT A/O, 2.5L NC. LUNGS CLEAR BUT DIMINISHED THROUGHOUT. PT HAS A MOIST PRODUCTIVE COUGH. SPUTUM IS TINGED YELLOW AND MOSTLY WHITE. CMS IS INTACT. PULSES +3. SKIN FRAGILE. PT TACHYPENIC DISCHARGE INSTRUCTIONS GIVEN. PACKET GIVEN TO PT. PT ORDERED LUNCH. WILL NOT ARRIVE UNTIL AFTER LUNCH. IV DC'D.
--- NOTE | 2017-12-08 11:33 | NUR ---
PT SITTING UP IN BED GETTING DRESSED. OFFERED HELP. PT REFUSED AND WANT TO COMPLETE THE TASK ON HIS OWN. LUNCH AT BEDSIDE. CALL LIGHT WITHIN REACH. PT REPORTS NO OTHER NEEDS AT THIS TIME.
--- NOTE | 2017-12-08 13:04 | NUR ---
PT SITTING UP IN BED, DRESSED IN STREET CLOTHING, REMAINS ON 2.5 L O2 VIA NC. PT REPORTED THAT HIS IS GOING TO PICK HIM UP AT APROXIMATELY 1315. DENIED PAIN, DENIED NEEDS.
== END 2017-12-08 13:20 | disposition home or self-care (01) | DRG 191 ==
LOC: ED 21:04 → MS 12-04 00:38
PROVIDERS: ADMIT Internal Medicine
DX: J44.1 Chronic obstructive pulmonary disease with (acute) exacerbation (principal); J96.11 Chronic respiratory failure with hypoxia; G89.4 Chronic pain syndrome; E03.9 Hypothyroidism, unspecified; F39 Unspecified mood [affective] disorder; K21.9 Gastro-esophageal reflux disease without esophagitis; Z99.81 Dependence on supplemental oxygen; Z87.891 Personal history of nicotine dependence
CPT/HCPCS: 36415; 71046; 80048; 80053; 83735; 83880; 84484; 85025; 87502; 93005; 93010; 94640; J1650; J1956; J2920; J2930; J7512

== ENCOUNTER 2018-06-14 16:32 | Emergency (ER) | payer MEDICARE, OTHER ==
[~2018-06-14] VITALS: Ht 165.1 cm; Wt 63.7 kg
--- OUTSIDE RECORDS SUMMARY | ~2018-06-14 | XMS | Clinical Summary ---
Demographics + + + | Address | [address] | | | [place] [address] | + + + | Home Phone | | + + + | Preferred Language | Unknown | + + + | Marital Status | | + + + | Buddhist Affiliation | 1077 | + + + | Race | Unknown | + + + | Ethnic Group | Unknown | + + + Author + + + | Author | [facility] | | | and [place] | + + + | Organization | [facility] | | | and [place] | + + + | Address | Unknown | + + + | Phone | Unavailable | + + + Support + + + + + | Name | Relationship | Address | Phone | + + + + + | Amaya Enciso | ECON | [address] | | | | | [place] | | | | | [address] | | + + + + + Care Team Providers + +------+ + | Care Hand Inspector Name | Role | Phone | + +------+ + | Estuardo Hale MD | PP | | + +------+ + Allergies + + + +--------+ + | Active Allergy | Reactions | Severity | Noted | Comments | | | | | Date | | + + + +--------+ + | Bee Venom | Swelling | High | | | + + + +--------+ + Current Medications + + + +---------+------+------+-------+ | Prescription | Sig. | Disp. | Refills | Star | End | Statu | | | | | | t | Date | s | | | | | | Date | | | + + + +---------+------+------+-------+ | Ibuprofen 200 MG | 1-2 capsules by | | | 09/ | | Activ | | CAPS | mouth as needed | | | 3/20 | | e | | | | | | 12 | | | + + + +---------+------+------+-------+ | sildenafil | Take 100 mg by mouth | | | | | Activ | | (VIAGRA) 100 MG | as needed. | | | | | e | | tablet | | | | | | | + + + +---------+------+------+-------+ | aspirin 325 mg | Take 325 mg by mouth | | | | | Activ | | tablet | Daily. | | | | | e | + + + +---------+------+------+-------+ | benzonatate | Take 100 mg by mouth | | | | | Activ | | (TESSALON) 100 mg | 3 times daily as | | | | | e | | capsule | needed. | | | | | | + + + +---------+------+------+-------+ | omeprazole | Take 20 mg by mouth | | | | | Activ | | (PRILOSEC) 20 mg | every morning | | | | | e | | capsule | (before breakfast). | | | | | | + + + +---------+------+------+-------+ | cyclobenzaprine | Take one tablet | | | 10/0 | | Activ | | (FLEXERIL) 10 mg | every 4 hours as | | | 8/20 | | e | | tablet | needed | | | 16 | | | + + + +---------+------+------+-------+ | | Take 1 tablet by | | 0 | 11/2 | | Activ | | HYDROcodone-acetamin | mouth every 6 hours | | | 07/23 | | e | | ophen (NORCO) 5-325 | as needed. | | | 16 | | | | mg per tablet | | | | | | | + + + +---------+------+------+-------+ | nystatin | Apply 1 Application | | 0 | 11/0 | | Activ | | (MYCOSTATIN) cream | topically Twice | | | 02/20 | | e | | | daily as needed. | | | 16 | | | + + + +---------+------+------+-------+ | citalopram | Take 10 mg by mouth | | | 05/03 | | Activ | | (CELEXA) 10 mg | Daily. | | | 07/23 | | e | | tablet | | | | 17 | | | + + + +---------+------+------+-------+ | Cholecalciferol | Take 5,000 Units by | | | | | Activ | | (VITAMIN D-3) 5000 | mouth Daily. | | | | | e | | units CAPS | | | | | | | + + + +---------+------+------+-------+ | azithromycin | TAKE 1 TABLET THREE | 36 | 3 | / | | Activ | | (ZITHROMAX) 500 MG | TIMES A WEEK ( | tablet | | 6 | | e | | tablet | PATIENT IS DUE FOR | | | 17 | | | | | PULMONARY FOLLOW UP | | | | | | | | ) | | | | | | + + + +---------+------+------+-------+ | ADVAIR DISKUS | USE 1 INHALATION | 180 | 1 | 01 | | Activ | | 500-50 MCG/DOSE | TWICE A DAY | each | | 8 | | e | | diskus inhaler | | | | 18 | | | + + + +---------+------+------+-------+ | levothyroxine | Take 100 mcg by | | | 12/3 | | Activ | | (SYNTHROID) 100 mcg | mouth every morning | | | 0/20 | | e | | tablet | (before breakfast). | | | 17 | | | + + + +---------+------+------+-------+ | GUAIFENESIN AC | take 1 to 3 | | 0 | 02/2 | | Activ | | 100-10 MG/5ML syrup | teaspoonfuls by | | | 6/20 | | e | | | mouth every 3 to 8 | | | 18 | | | | | hours if needed for | | | | | | | | cough | | | | | | + + + +---------+------+------+-------+ | terbinafine | take 1 tablet by | | 0 | 02/0 | | Activ | | (LAMISIL) 250 MG | mouth once daily for | | | 5/20 | | e | | tablet | FUNGAL INFECTION | | | 18 | | | + + + +---------+------+------+-------+ | levalbuterol | USE 1 VIAL VIA | 1080 mL | 1 | 03/2 | | Activ | | (XOPENEX) 1.25 mg/3 | NEBULIZER EVERY 4 | | | 9/20 | | e | | mL nebulizer | HOURS NEEDED FOR | | | 18 | | | | solution | SHORTNESS OF BREATH | | | | | | | | (MAXIMUM OF 4 VIALS | | | | | | | | PER DAY) | | | | | | + + + +---------+------+------+-------+ | SPIRIVA RESPIMAT | USE 2 INHALATIONS | 3 | 1 | 04/2 | | Activ | | 2.5 MCG/ACT inhaler | DAILY | Inhaler | | 7/20 | | e | | | | | | 18 | | | + + + +---------+------+------+-------+ | DALIRESP 500 MCG | TAKE 1 TABLET DAILY | 90 | 1 | 05/2 | | Activ | | tablet | | tablet | | 9/20 | | e | | | | | | 18 | | | + + + +---------+------+------+-------+ | predniSONE | Take 10 mg by mouth | | | | | Activ | | (DELTASONE) 10 mg | Daily. | | | | | e | | tablet | | | | | | | + + + +---------+------+------+-------+ | levoFLOXacin | Take 1 tablet by | 5 | 0 | 08/1 | 08/1 | Activ | | (LEVAQUIN) 500 mg | mouth Daily for 5 | tablet | | 0/20 | 5/20 | e | | tabletIndications: | days. | | | 18 | 18 | | | COPD, frequent | | | | | | | | exacerbations (HCC) | | | | | | | + + + +---------+------+------+-------+ | predniSONE | 4 tabs daily in | 27 | 0 | 06/03 | | Activ | | (DELTASONE) 10 mg | morning with food. | tablet | | 0/20 | | e | | tabletIndications: | Please decrease by 1 | | | 18 | | | | COPD, frequent | tab every 3 days | | | | | | | exacerbations (HCC) | until down to | | | | | | | | standard 10 mg dose. | | | | | | + + + +---------+------+------+-------+ | albuterol (PROAIR | INHALE 2 PUFFS INTO | 3 each | 3 | 08/ | | Activ | | HFA) 90 mcg/puff | THE LUNGS EVERY 4 | | | 0/20 | | e | | inhalerIndications: | HOURS NEEDED FOR | | | 18 | | | | COPD, very severe | WHEEZING OR | | | | | | | (HCC) | SHORTNESS OF BREATH | | | | | | + + + +---------+------+------+-------+ | PROAIR HFA 108 (90 | INHALE 2 PUFFS INTO | 3 each | 2 | 10/1 | 08/1 | Disco | | BASE) MCG/ACT | THE LUNGS EVERY 4 | | | 2/20 | 0/20 | ntinu | | inhaler | HOURS NEEDED FOR | | | 15 | 18 | ed | | | WHEEZING OR | | | | | | | | SHORTNESS OF BREATH | | | | | | + + + +---------+------+------+-------+ | cephalexin | Take 500 mg by mouth | | | | 08/1 | Disco | | (KEFLEX) 500 mg | 4 times daily. | | | | 0/20 | ntinu | | capsule | | | | | 18 | ed | + + + +---------+------+------+-------+ | doxycycline | Take 1 capsule by | 10 | 0 | 05/0 | 08/1 | Disco | | (VIBRAMYCIN) 100 mg | mouth 2 times daily. | capsule | | 4/20 | 0/20 | ntinu | | capsuleIndications: | | | | 18 | 18 | ed | | COPD, frequent | | | | | | | | exacerbations (HCC) | | | | | | | + + + +---------+------+------+-------+ | predniSONE | 4 tabs daily in | 30 | 0 | 05/0 | 08/1 | Disco | | (DELTASONE) 10 mg | morning with food. | tablet | | 4/20 | 0/20 | ntinu | | tabletIndications: | Please decrease by 1 | | | 18 | 18 | ed | | COPD, frequent | tab every 3 days | | | | | | | exacerbations (HCC) | until down to 1 tab | | | | | | | | daily. | | | | | | + + + +---------+------+------+-------+ Active Problems + + + | Problem | Noted Date | + + + | COPD with acute bronchitis (HCC) | 06/12/2018 | + + + | Tachycardia | 01/05/2018 | + + + | COPD, frequent exacerbations (HCC) | 07/15/2017 | + + + | COPD, very severe (HCC) | 07/19/2016 | + + + | Hypoxemia | 07/19/2016 | + + + | Hypercapnia | 03/26/2016 | + + + | Pulmonary nodules | 06/28/2011 | + + + + + | Overview: Two previously described left lower lobe nodules | | measuring 5 mm superiorly on image 49 and 6 mm in the posterior | | costophrenic sulcus on image 95 are stable dating back to | | 09/15/2012. A 3 mm right middle lobe nodule was also stable. | | Chest CT stable 09/13/14. 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) | 05/18/20 | | | | 13 | 6 | + + + + + + | Overview: On oxygen 2.5L | | Last checked 09/17/2013 | + + + + + + | Weight loss | 07/14/20 | | | | 12 | 3 | + + + + | CHRONIC OBSTRUCTIVE PULMONARY DISEASE, ACUTE EXACERBATION | 06/28/20 | | | | 11 | 3 | + + + + Encounters +--------+---------+ + + + | Date | Type | Specialty | Care Team | Description | +--------+---------+ + + + | 06/12/ | Office | | Harpreet Momin, | COPD with acute | | 2017 | Visit | | MD | bronchitis (HCC) | | | | | | (Primary Dx); COPD, | | | | | | very severe (HCC); | | | | | | COPD, frequent | | | | | | exacerbations (HCC); | | | | | | Hypoxemia | +--------+---------+ + + + | 03/29/ | Refill | | Harpreet Momin, | Medication Refill | | 2017 | | | MD | | +--------+---------+ + + + from Last 3 Months Immunizations + + + + | Name | Dates Previously Given | Next Due | + + + + | INFLUENZA 63 Y OR >, | 08/02/2017, 08/15/2016, 08/19/2015 | | | TRIVALENT HIGH-DOSE | | | + + + + | INFLUENZA PF 16 Y OR | 10/03/2014, 09/07/2013, 12/04/2012, | | | >,TRIVALENT | 09/15/2011 | | | RECOMBINANT | | | + + + + | PNEUMOCOCCAL | 08/07/2015 | | | CONJUGATE 13-VALENT | | | | (PCV13) | | | + + + + | PNEUMOCOCCAL | 02/22/2014, 01/26/2013 | | | POLYSACCHARIDE | | | | 23-VALENT (PPSV23) | | | + + + + | TDAP, (ADOL/ADULT) | 07/14/2012 | | + + + + | ZOSTER, 1 DOSE | 12/04/2012 | | | (ADULT) | | | + + + + Family History + + +------+ + | Medical History | Relation | Name | Comments | + + +------+ + | Alcohol abuse | Brother | | | + + +------+ + | Alcohol abuse | Father | | | + + +------+ + | Other (see comment) | Father | | pneumonia | + + +------+ + | Stroke | Mother | | | + + +------+ + | Asthma | Other | | uncle | + + +------+ + | Drug abuse | Sister | | | + + +------+ + + +------+ + + | Relation | Name | Status | Comments | + +------+ + + | Brother | | | | + +------+ + + | Father | | | | + +------+ + + | Mother | | | | + +------+ + + | Other | | | | + +------+ + + | Sister | | | | + +------+ + + Social History + + + +--------+ + | Tobacco Use | Types | Packs/Day | Years | Date | | | | | Used | | + + + +--------+ + | Former Smoker | Cigarettes | 1.5 | 37 | 07/19/1973 - | | | | | | 02/07/2009 | + + + +--------+ + + +---+---+---+ | Smokeless Tobacco: | | | | | Never Used | | | | + +---+---+---+ + + | Tobacco Cessation: Counseling Given: No | + + + + +---------+ + | Alcohol Use | Drinks/We | oz/Week | Comments | | | ek | | | + + +---------+ + | Yes | 0 | 0.0 | Rarely | | | Standard | | | | | drinks or | | | | | | | | | | equivalen | | | | | t | | | + + +---------+ + + + + | Sex Assigned at | Date Recorded | | | | + + + | Not on file | | + + + Last Filed Vital Signs + + + + | Vital Sign | Reading | Time Taken | + + + + | Blood Pressure | 122/78 | 06/12/20181351 PDT | + + + + | Pulse | 124 | 06/12/2018 135 PDT | + + + + | Temperature | 37.1 C (98.7 F) | 06/12/20181351 PDT | + + + + | Respiratory Rate | 26 | 10/13/20171317 PST | + + + + | Oxygen Saturation | 94% | 06/12/20181351 PDT | + + + + | Inhaled Oxygen | - | - | | Concentration | | | + + + + | Weight | 63.9 kg (140 lb 14 | 06/12/20181351 PDT | | | oz) | | + + + + | Height | 160 cm (5' 3") | 06/12/20181351 PDT | + + + + | Body Mass Index | 24.95 | 06/12/2018 1352 PDT | + + + + Plan of Treatment +--------+---------+ + + + | Date | Type | Specialty | Care Team | Description | +--------+---------+ + + + | 06/30/ | Office | | Harpreet Momin, | | | 2017 | Visit | | [facility] | | | | | | [place], [place] | | | | | | [place] | | | | | | [address] | | | | | | | | +--------+---------+ + + + + + + + + | Health Maintenance | Due Date | Last Done | Comments | + + + + + | Hepatitis C | | | | | Screening | 8 | | | + + + + + | Colorectal Cancer | | | | | Screening | 8 | | | | (Colonoscopy) | | | | + + + + + | Lung Cancer | | 09/13/2014, 02/16/2013, | | | Screening | 5 | 12/29/2012, Additional history | | | | | exists | | + + + + + | Vaccine: Influenza | | 08/02/2017, 08/15/2016, | | | (#1) | 8 | 08/19/2015, Additional history | | | | | exists | | + + + + + | Vaccine: | | 07/14/2012 | | | Dtap/Tdap/Td (2 - | 2 | | | | Td) | | | | + + + + + | Vaccine: | Completed | 08/07/2015, 02/22/2014, | | | Pneumococcal 65+ | | 01/26/2013 | | | Low/Medium Risk | | | | + + + + + Results Not on filefrom Last 3 Months Insurance + +--------+ +--------+ +---------+ | Payer | Benefi | Subscriber | Type | Phone | Address | | | t Plan | ID | | | | | | / | | | | | | | Group | | | | | + +--------+ +--------+ +---------+ | MEDICARE | MEDICA | [id number] | Medica | [phone] | | | | RE | | re | [phone] | | | | PART A | | | | | | | AND B | | | | | + +--------+ +--------+ +---------+ | | TRICAR | [id number] | Indemn | [phone] | | | | E FOR | | ity | [phone] | | | | LIFE | | | | | + +--------+ +--------+ +---------+ + +--------+ +--------+ + + | Guarantor Name | Accoun | Relation to | Date | Phone | Billing Address | | | t Type | Patient | of | | | | | | | | | | + +--------+ +--------+ + + | EDMUND ENCISO | Person | Self | [birth year] | Home: | [address] | | | al/Fam | | 1950 | [phone] | [place] [address] | | | slava | | | [phone] | | + +--------+ +--------+ + +
--- OUTSIDE RECORDS SUMMARY | ~2018-06-14 | XMS | Clinical Summary ---
Demographics + + + | Address | [address] | | | [place] [address] | + + + | Home Phone | | + + + | Preferred Language | Unknown | + + + | Marital Status | | + + + | Rastafarian Affiliation | 1077 | + + + | Race | Unknown | + + + | Ethnic Group | Unknown | + + + Author + + + | Author | [facility] | | | and [place] | + + + | Organization | [facility] | | | and [place] | + + + | Address | Unknown | + + + | Phone | Unavailable | + + + Support + + + + + | Name | Relationship | Address | Phone | + + + + + | Amaya Enciso | ECON | [address] | | | | | [place] | | | | | [address] | | + + + + + Care Team Providers + +------+ + | Care Clinical Scientist Name | Role | Phone | + [...] 2017 | Visit | | [facility] | | | | | | [place], [address] | | | | | | [place] | | | | | | [address] | | | | | | | [...] +--------+ +---------+ | MEDICARE | MEDICA | [id number] | Medica | [phone] | | | | RE | | re | [phone] | | | | PART A | | | | | | | AND B | | | | | + +--------+ +--------+ +---------+ | | TRICAR | [id number] | Indemn | [phone] | | | [...] | | al/Fam | | 1950 | [phone] | [place] [address] | | | slava | | | [phone] | | + +--------+ +--------+ + +
--- OUTSIDE RECORDS SUMMARY | ~2018-06-14 | XMS | Encounter Summary ---
Demographics + + + | Address | [address] | | | [place] [address] | + + + | Home Phone | | + + + | Preferred Language | Unknown | + + + | Marital Status | | + + + | Oriental Orthodox Affiliation | 1077 | + + + | Race | Unknown | + + + | Ethnic Group | Unknown | + + + Author + + + | Author | [facility] | | | and [place] | + + + | Organization | [facility] | | | and [place] | + + + | Address | Unknown | + + + | Phone | Unavailable | + + + Support + + + + + | Name | Relationship | Address | Phone | + + + + + | Amaya Walker | ECON | [address] | | | | | [place] | | | | | [address] | | + + + + + Care Team Providers + +------+ + | Care Chief Inspector Name | Role | Phone | [...] + + | 06/12/ | Office | [facility] [place] | Harpreet Momin, | COPD with acute | | 2018 | Visit | PULMONARY [address] | bronchitis (HCC) | | | | [place], | [place] | (Primary Dx); COPD, | | | | [place] [address] | [place], [place] | very severe (HCC); | | | | [phone] | [address] | COPD, frequent | | | | [...] information carefully each time. Talk to your horticultural specialty grower inside regarding the use of this medicine in children. While this drug m ay be prescribed for children as young as 6 months for selected conditions, precautions do a pply. What side effects may I notice from receiving this medicine? Side effects that you should report to your doctor or health hospice patient care secretary as soon as p ossible: allergic reactions [...] attention (report to your doctor or health hospice patient care secretary if they continue or are bothersome): constipation [...] and 86 degrees F). Keep in a [employer] closed container. Throw away any unused medicine [...] watery. Check with your doctor or health hospice patient care secretary if you get an attack of severe [...] pharmacist, or health care provider. Copyright 2017 [employer] in this encounter Progress Notes Harpreet Momin [...] of Advair, Spiriva and prednisone for their SAFETY LEAD D. Edmund also uses Hafsa rest and [...] and does produce mucous. The mucous is cnc applications engineer yellow in color. They have not had [...] Brandon MDin this encounter Plan of Treatment +--------+---------+ + + + | Date | Type | Specialty | Care Team | Description | +--------+---------+ + + + | 06/30/ | Office | Pulmonology | Harpreet Momin, | | | 2017 | Visit | | MD George Brown | | | | | | [place], [address] | | | | | | [place] | | | | | | [id number] | | | | | | | | +--------+---------+ + + + as of this encounter Visit Diagnoses + + [...]
--- OUTSIDE RECORDS SUMMARY | ~2018-06-14 | XMS | Encounter Summary ---
Demographics + + + | Address | [address] | | | [place] [address] | + + + | Home Phone [...] | Author | [facility] | | | and [place] | + + + | Organization | [facility] | | | and [place] | + + + | Address | Unknown | + + + | Phone | Unavailable | + + + Support + + + + + | Name | Relationship | Address | Phone | + + + + + | Amaya Walker | ECON | [address] | | | | | [place] | | | | | [address] | | + + + + + Care Team Providers + +------+ + | Care Band Director Name | Role | Phone | + [...] + + | 06/12/ | Office | [facility] [place] | Harpreet Momin, | COPD with acute | | 2018 | Visit | PULMONARY [address] | [address] | bronchitis (HCC) | | | | [place], | [place], [place] | (Primary Dx); COPD, | | | | [place] [address] | [place], [place] | very severe (HCC); | | | | [phone] | [address] | COPD, frequent | | | | [...] information carefully each time. Talk to your lace finisher regarding the use of this medicine in children. While this drug m ay be prescribed for children as young as 6 months for selected conditions, precautions do a pply. What side effects may I notice from receiving this medicine? Side effects that you should report to your doctor or health primary care sales representative as soon as p ossible: allergic reactions [...] attention (report to your doctor or health primary care sales representative if they continue or are bothersome): constipation [...] and 86 degrees F). Keep in a [employer] closed container. Throw away any unused medicine [...] watery. Check with your doctor or health primary care sales representative if you get an attack of severe [...] pharmacist, or health care provider. 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 Edmund also uses Hafsa rest and [...] and does produce mucous. The mucous is process supervisor yellow in color. They have not had [...] | 06/30/ | Office | Pulmonology | Hrapreet Momin, | | | 2017 | Visit | | MD George Brown | | | | | | [place], [place] | | | | | | [place] | | | | | | [address] | | | | | | | [...]
--- OUTSIDE RECORDS SUMMARY | ~2018-06-14 | XMS | Encounter Summary ---
Demographics + + + | Address | [address] | | | [place] [address] | + + + | Home Phone | | + + + | Preferred Language | Unknown | + + + | Marital Status | | + + + | Gnosticist Affiliation | 1077 | + + + | Race | Unknown | + + + | Ethnic Group | Unknown | + + + Author + + + | Author | [facility] | | | and [place] | + + + | Organization | [facility] | | | and [place] | + + + | Address | Unknown | + + + | Phone | Unavailable | + + + Support + + + + + | Name | Relationship | Address | Phone | + + + + + | Amaya Walker | ECON | [address] | | | | | [place] | | | | | [address] | | + + + + + Care Team Providers + +------+ + | Care Chain Tender Name | Role | Phone | + [...] | PULMONARY [address] | MD [address] | | | | | [place], | [place], [place] | | | | | [place] [address] | [place], [place] | | | | | [phone] | [address] | | | | | | | [...] 2017 | Visit | | MD V[facility] [place] | | | | | | [place], [place] | | | | | | [place] | | | | | | [phone] | | | | | | | | +--------+---------+ + + + as of this encounter Visit Diagnoses Not on filein this encounter"
--- OUTSIDE RECORDS SUMMARY | ~2018-06-14 | XMS | Encounter Summary ---
Demographics + + + | Address | [address] | | | [place] [address] | + + + | Home Phone | | + + + | Preferred Language | Unknown | + + + | Marital Status | | + + + | Roman Catholic Affiliation | 1077 | + + + | Race | Unknown | + + + | Ethnic Group | Unknown | + + + Author + + + | Author | [facility] | | | and [place] | + + + | Organization | [facility] | | | and [place] | + + + | Address | Unknown | + + + | Phone | Unavailable | + + + Support + + + + + | Name | Relationship | Address | Phone | + + + + + | Amaya Walker | ECON | [address] | | | | | [place] | | | | | [address] | | + + + + + Care Team Providers + +------+ + | Care Business Applications Manager Name | Role | Phone | + [...] | PULMONARY [address] | MD [address] | | | | | [place], | [place], [place] | | | | | [place] [address] | [place], [place] | | | | | [phone] | [address] | | | | | | | [...] 2017 | Visit | | MD Vazquez [place] | | | | | | [place], [place] | | | | | | [place] | | | | | | [phone] | | | | | | | | +--------+---------+ + + + as of this encounter Visit Diagnoses Not on filein this encounter"
[~2018-06-14 16:32] MED LIST changes: +FLUTICASONE PRO16 GM NAS; +GUAIFENESIN AC473 ML PO; +HYDROCORTISO28.35 GM TOP; +LEVOTHYROXINE100 MCG PO; +VENTOLIN HFA18 GM INH
[2018-06-14] MEDS ORDERED: PREDNISONE20 MG PO (16:43)
[2018-06-14] MEDS ORDERED: LEVOFLOXACIN500 MG PO (16:43)
[2018-06-14] MEDS ORDERED: XANAX0.25 MG PO (18:50)
--- NOTE | 2018-06-15 07:45 | EKG ---
[facility] [address] [facility] [place], [place] [address] Signed Sinus tachycardia Otherwise normal ECG When compared with ECG of 03-DEC-2017 21:21, No significant change was found Confirmed by BOOM REYES MD ([id number]) on 06/15/2018 7:44:20 AM Electronically Signed By: BOOM REYES MD 06/15/18 0745 PATIENT NAME: VALENTIN ENCISO Electrocardiogram DATE OF : 46 PHYSICIAN: BOOM REYES MD REPORT #: [id number] REPORT IS CONFIDENTIAL AND NOT TO BE RELEASED WITHOUT AUTHORIZATION
== END 2018-06-14 21:00 | disposition home or self-care (01) ==
LOC: ED 16:32
DX: J44.9 Chronic obstructive pulmonary disease, unspecified (principal); R07.89 Other chest pain; Z87.891 Personal history of nicotine dependence; Z91.030 Bee allergy status; Z88.8 Allergy status to other drugs, medicaments and biological substances; Z79.899 Other long term (current) drug therapy
CPT/HCPCS: 71045; 80053; 84484; 85025; 93005; 93010; 94640; 96374; 96375; 96376; 99285; J2060; J2930

== ENCOUNTER 2018-06-29 15:45 | Inpatient (IN) | payer MEDICARE, OTHER ==
[~2018-06-29] VITALS: Ht 165.1 cm; Wt 63.7 kg
--- OUTSIDE RECORDS SUMMARY | ~2018-06-29 | XMS | Clinical Summary ---
Demographics + + + | Address | [address] | | | [place] [address] | + + + | Home Phone | | + + + | Preferred Language | Unknown | + + + | Marital Status | | + + + | Buddhist Affiliation | 1077 | + + + | Race | Unknown | + + + | Ethnic Group | Unknown | + + + Author + + + | Author | [facility] | | | and [place] | + + + | Organization | [facility] | | | and [place] | + + + | Address | Unknown | + + + | Phone | Unavailable | + + + Support + + + + + | Name | Relationship | Address | Phone | + + + + + | Amaya Enciso | ECON | [address] | | | | | [place] | | | | | [address] | | + + + + + Care Team Providers + +------+ + | Care Steam Train Driver Name | Role | Phone | + [...] TABLET THREE | 36 | 3 | 10/1 | | Activ | | (ZITHROMAX) 500 MG | TIMES A WEEK ( | tablet | | 6/20 | | e | | tablet | [...] inhaler | DAILY | Inhaler | | / | | e | | | | [...] daily in | 27 | 0 | 08/1 | | Activ | | (DELTASONE) 10 [...] INTO | 3 each | 3 | 08/1 | | Activ | | HFA) 90 mcg/puff | THE LUNGS EVERY 4 | | | 0/20 | | e | | inhalerIndications: | HOURS NEEDED FOR | | | 18 | | | | COPD, very severe | WHEEZING OR | | | | | | | ([facility]) | SHORTNESS OF BREATH | | | | | | + + + +---------+------+------+-------+ | ADVAIR DISKUS | USE 1 INHALATION | 180 | 1 | 08/2 | | Activ | | 500-50 MCG/DOSE | TWICE A DAY | each | | 1/20 | | e | | diskus inhaler [...] 1 INHALATION | 180 | 1 | 01/ | 08/2 | Disco | | 500-50 MCG/DOSE | TWICE A DAY | each | | 8/20 | 1/20 | ntinu | | diskus inhaler | | | | 18 | 18 | ed | + + + +---------+------+------+-------+ | cephalexin [...] | 0 | 08/1 | 08/1 | Expir | | (LEVAQUIN) 500 mg | mouth Daily for 5 | tablet | | 0/20 | 5/20 | ed | | tabletIndications: | days. | | [...] Description | +--------+---------+ + + + | 06/23/ | Refill | | Harpreet Momin, | Medication Refill | | 2017 | | | MD | | +--------+---------+ + + + | 06/12/ [...] Medication Refill | | 2018 | | | MD | | +--------+---------+ [...] + + | Pulse | 124 | 06/12/20181351 PDT | + + + [...] | Body Mass Index | 24.95 | 06/12/20181351 PDT | + + + + Plan of Treatment + + + + + | Health [...] + + + + + | Vaccine: Zoster (2 | | 12/04/2012 | | | of 3) | 3 | | | + + + + [...] +--------+ +---------+ | MEDICARE | MEDICA | [id number] | Medica | [phone] | | | RE | | re | [phone] | | | | PART A | | | | | | | AND B | | | | | + +--------+ +--------+ +---------+ | | TRICAR | [id number] | Indemn | [phone] | | [...] Self | [birth year] | Home: | [address] | | | al/Fam | | [phone] | [phone] | [place] [address] | | | [place] | | | [phone] | | + +--------+ +--------+ + +
--- OUTSIDE RECORDS SUMMARY | ~2018-06-29 | XMS | Encounter Summary ---
Demographics + + + | Address | [address] | | | [place] [address] | + + + | Home Phone | | + + + | Preferred Language | Unknown | + + + | Marital Status | | + + + | Orthodoxy Affiliation | 1077 | + + + | Race | Unknown | + + + | Ethnic Group | Unknown | + + + Author + + + | Author | [facility] | | | and [place] | + + + | Organization | [facility] | | | and [place] | + + + | Address | Unknown | + + + | Phone | Unavailable | + + + Support + + + + + | Name | Relationship | Address | Phone | + + + + + | Amaya Walker | ECON | [address] | | | | | [place] | | | | | [address] | | + + + + + Care Team Providers + +------+ + | Care Wood Milling Machine Operator Name | Role | Phone | + +------+ + | Estuardo Hale MD | PCP | | + +------+ + Reason for Visit + + + | Reason | Comments | + + + | Medication Refill | | + + + Encounter Details +--------+--------+ + + + | Date | Type | Department | Care Team | Description | +--------+--------+ + + + | 03/29/ | Refill | [facility] [place] | Harpreet Momin, | Medication Refill | | 2017 | | PULMONARY [address] | MD [address] | | | | | [place], | [place], [place] | | | | | [place] [address] | [place], [place] | | | | | [phone] | [address] | | | | | | | | +--------+--------+ + + + [...] on file | | + + + as of this encounter Plan of Treatment Not on fileas of this encounter Visit Diagnoses Not on filein this encounter"
--- OUTSIDE RECORDS SUMMARY | ~2018-06-29 | XMS | Encounter Summary ---
Demographics + + + | Address | [address] | | | [place] [address] | + + + | Home Phone | | + + + | Preferred Language | Unknown | + + + | Marital Status | | + + + | Hinduism Affiliation | 1077 | + + + | Race | Unknown | + + + | Ethnic Group | Unknown | + + + Author + + + | Author | [facility] | | | and [place] | + + + | Organization | [facility] | | | and [place] | + + + | Address | Unknown | + + + | Phone | Unavailable | + + + Support + + + + + | Name | Relationship | Address | Phone | + + + + + | Amaya Walker | ECON | [address] | | | | | [place] | | | | | [address] | | + + + + + Care Team Providers + +------+ + | Care Roofing Machine Operator Name | Role | Phone | + +------+ + | Estuardo Hale MD | PCP | | + +------+ + Reason for Visit +--------+ + | Reason | Comments | +--------+ + | COPD | 3 mo follow up | +--------+ + Encounter Details +--------+---------+ + + + | Date | Type | Department | Care Team | Description | +--------+---------+ + + + | 06/12/ | Office | [facility] [place] | Harpreet Momin, | COPD with acute | | 2018 | Visit | PULMONARY [address] | [address] | bronchitis (HCC) | | | | [place], | [place], [place] | (Primary Dx); COPD, | | | | [place] [address] | [place], [place] | very severe (HCC); | | | | [phone] | [address] | COPD, frequent | | | | | | exacerbations (HCC); | | | | | | Hypoxemia | +--------+---------+ + + + Social History + + [...] + + + as of this encounter Last Filed Vital Signs + + + [...] + + + | Respiratory Rate | - | - | + + + + | Oxygen Saturation | 94% | 06/12/20181351 PDT | + + + + | Inhaled Oxygen | - | - | | Concentration | | | + + + + | Weight | 63.9 kg (140 lb 14 | 06/12/2018 1352 PDT | | | oz) | | + + + + | Height | 160 cm (5' 3") | 06/12/2018 1352 PDT | + + + + | Body Mass Index | 24.95 | 06/12/2018 1352 PDT | + + + + in this encounter Instructions Patient Instructions - Harpreet Momin MD - 06/12/2018 1400 PDT Levofloxacin tablets Brand Names: Levaquin, Levaquin Leva-Kushal What is this medicine? LEVOFLOXACIN (abdelrahman rick CRAIN a ct) is a quinolone antibiotic. It is used to treat certain ki nds of bacterial infections. It will not work for colds, flu, or other viral infections. How should I use this medicine? Take this medicine by mouth with a full glass of water. Follow the directions on the prescr iption label. This medicine can be taken with or without food. Take your medicine at regular intervals. Do not take your medicine more often than directed. Do not skip doses or stop yo ur medicine early even if you feel better. Do not stop taking except on your doctor's advice . A special MedGuide will be given to you by the pharmacist with each prescription and refill . Be sure to read this information carefully each time. Talk to your video game engineer regarding the use of this medicine in children. While this drug m ay be prescribed for children as young as 6 months for selected conditions, precautions do a pply. What side effects may I notice from receiving this medicine? Side effects that you should report to your doctor or health care associate as soon as p ossible: allergic reactions like skin rash or hives, swelling of the face, lips, or tongue anxious breathing problems confusion depressed mood diarrhea dizziness fast, irregular heartbeat hallucination, loss of contact with reality joint, muscle, or tendon pain or swelling muscle weakness pain, tingling, numbness in the hands or feet seizures signs and symptoms of high blood sugar such as dizziness; dry mouth; dry skin; fruity br eath; nausea; stomach pain; increased hunger or thirst; increased urination signs and symptoms of liver injury like dark yellow or brown urine; general ill feeling or flu-like symptoms; light-colored stools; loss of appetite; nausea; right upper belly pain ; unusually weak or tired; yellowing of the eyes or skin signs and symptoms of low blood sugar such as feeling anxious; confusion; dizziness; inc reased hunger; unusually weak or tired; sweating; shakiness; cold; irritable; headache; blur red vision; fast heartbeat; loss of consciousness suicidal thoughts or other mood changes sunburn unusually weak or tired Side effects that usually do not require medical attention (report to your doctor or health care associate if they continue or are bothersome): constipation dry mouth headache nausea, vomiting trouble sleeping What may interact with this medicine? Do not take this medicine with any of the following medications: bepridil certain medicines for depression, anxiety, or psychotic disturbances like pimozide, thio ridazine, and ziprasidone certain medicines for irregular heart beat like dofetilide and dronedarone cisapride halofantrine This medicine may also interact with the following medications: antacids control pills certain medicines for diabetes, like glipizide, glyburide, or insulin didanosine buffered tablets or powder multivitamins NSAIDS, medicines for pain and inflammation, like ibuprofen or naproxen steroid medicines like prednisone or cortisone sucralfate theophylline warfarin What if I miss a dose? If you miss a dose, take it as soon as you remember. If it is almost time for your next dos e, take only that dose. Do not take double or extra doses. Where should I keep my medicine? Keep out of the reach of children. Store at room temperature between 15 and 30 degrees C (59 and 86 degrees F). Keep in a [employer] closed container. Throw away any unused medicine after the expiration date. What should I tell my health care provider before I take this medicine? They need to know if you have any of these conditions: bone problems diabetes history of low levels of potassium in the blood irregular heartbeat joint problems kidney disease liver disease myasthenia gravis seizures tendon problems tingling of the fingers or toes, or other nerve disorder an unusual or allergic reaction to levofloxacin, other quinolone antibiotics, foods, dye s, or preservatives or trying to get breast-feeding What should I watch for while using this medicine? Tell your doctor or healthcare professional if your symptoms do not start to get better or if they get worse. Do not treat diarrhea with over the counter products. Contact your doctor if you have diarr hea that lasts more than 2 days or if it is severe and watery. Check with your doctor or health care associate if you get an attack of severe diarrhea, nausea and vomiting, or if you sweat a lot. The loss of too much body fluid can make it kulwant gerous for you to take this medicine. You may get drowsy or dizzy. Do not drive, use machinery, or do anything that needs mental alertness until you know how this medicine affects you. Do not sit or stand up quickly, suze cially if you are an older patient. This reduces the risk of dizzy or fainting spells. This medicine can make you more sensitive to the sun. Keep out of the sun. If you cannot av oid being in the sun, wear protective clothing and use a sunscreen. Do not use sun lamps or tanning beds/booths. Contact your doctor if you get a sunburn. If you are a diabetic monitor your blood glucose carefully. If you get an unusual reading s top taking this medicine and call your doctor right away. Avoid antacids, calcium, iron, and zinc products for 2 hours before and 2 hours after takin g a dose of this medicine. NOTE:This sheet is a summary. It may not cover all possible information. If you have questi ons about this medicine, talk to your doctor, pharmacist, or health care provider. Copyright 2017 [employer] in this encounter Progress Notes Harpreet Momin MD - 06/12/2018 1400 PDTFormatting of this note may be different from hasmukh cedeno original. Pulmonary Follow Up 06/12/2018 HPI Edmund Walker is a 67 y.o. male patient of Nahum Brandon MD here today for follo w up of Gold Stage IV COPD, frequent exacerbations of COPD and hypoxemia. The last pulmonary clinic visit was on 03/06/18. Since their last appointment they feel like their breathing issues have been stable with the exception of over the last several weeks. They have had any acute pulmonary illnesses. Several weeks history of fatigue, cough and mo re SOB. The patient has not required a prednisone taper since our last clinic appointment. Likewise Edmund has not required antibiotics for a COPD exacerbation since our last clinic a ppointment. The patient is currently on a daily regimen of Advair, Spiriva and prednisone for their SPRING TACKER D. Edmund also uses Hafsa rest and 3 times a week azithromycin. They do not feel like this me dication regimen is/are controlling their symptoms. Currently he is using their short actin g bronchodilator, ProAir, 1-2 times a day. They are using their Xopenex nebulizer, 3-4 times a day. Currently the patient is able to walk 15-20 feet at their own pace on level ground before d eveloping dyspnea. They are not exercising regularly. Their typical exercise consists of min imal walking. Edmund are not enrolled in cardiac/pulmonary rehabilitation. They have not comp leted pulmonary rehabilitation in the past. Edmund does cough chronically and does produce mucous. The mucous is lapper yellow in color. They have not had hemoptysis since our last appointment. He has been evaluated for nocturnal oxygen. They currently are using nocturnal oxygen. He is currently on 2.5 LPM at night while sleeping. They report excellent compliance. They have been evaluated for daytime oxygen and do use it. They are currently on 3 (pulse) LPM with e xertion and RA-2 LPM at rest. They have reported recent symptoms of nasal congestion, runny nose or post nasal drip. The patient have received this year's influenza vaccination. They are up to date with thei r Pneumovax and Prevnar 13. Patient denies chest pain Past Medical History Past Medical History: Diagnosis Date Allergic rhinitis COPD (chronic obstructive pulmonary disease) (HCC) severe, with frequent exacerbations QUINN (dyspnea on exertion) Erectile dysfunction Hypogonadism male Hypothyroidism Nocturnal hypoxemia Obesity Onychomycosis Pulmonary nodule 4.7mm nodule on chest CT 02/2013 Rash Social History: He reports that he quit smoking about 9 years ago. His smoking use included Cigarettes. He started smoking about 44 years ago. He has a 55.50 pack-year smoking history. He has never u sed smokeless tobacco. He reports that he drinks alcohol. He reports that he does not use dr mcdonald. Allergies: Allergies Allergen Reactions Bee Venom Swelling Medications: Current Outpatient Prescriptions: ADVAIR DISKUS 500-50 MCG/DOSE diskus inhaler, USE 1 INHALATION TWICE A DAY, Disp: 180 each, Rfl: 1 aspirin 325 mg tablet, Take 325 mg by mouth Daily., Disp: , Rfl: azithromycin (ZITHROMAX) 500 MG tablet, TAKE 1 TABLET THREE TIMES A WEEK ( PATIENT IS DUE FOR PULMONARY FOLLOW UP ), Disp: 36 tablet, Rfl: 3 benzonatate (TESSALON) 100 mg capsule, Take 100 mg by mouth 3 times daily as needed., Disp: , Rfl: Cholecalciferol (VITAMIN D-3) 5000 units CAPS, Take 5,000 Units by mouth Daily., Disp: , Rfl: citalopram (CELEXA) 10 mg tablet, Take 10 mg by mouth Daily., Disp: , Rfl: cyclobenzaprine (FLEXERIL) 10 mg tablet, Take one tablet every 4 hours as needed, Disp : , Rfl: DALIRESP 500 MCG tablet, TAKE 1 TABLET DAILY, Disp: 90 tablet, Rfl: 1 GUAIFENESIN AC 100-10 MG/5ML syrup, take 1 to 3 teaspoonfuls by mouth every 3 to 8 jose rs if needed for cough, Disp: , Rfl: 0 HYDROcodone-acetaminophen (NORCO) 5-325 mg per tablet, Take 1 tablet by mouth every 6 hours as needed., Disp: , Rfl: 0 Ibuprofen 200 MG CAPS, 1-2 capsules by mouth as needed, Disp: , Rfl: levalbuterol (XOPENEX) 1.25 mg/3 mL nebulizer solution, USE 1 VIAL VIA NEBULIZER EVERY 4 HOURS NEEDED FOR SHORTNESS OF BREATH (MAXIMUM OF 4 VIALS PER DAY), Disp: 1080 mL, Rfl: 1 levothyroxine (SYNTHROID) 100 mcg tablet, Take 100 mcg by mouth every morning (before breakfast)., Disp: , Rfl: nystatin (MYCOSTATIN) cream, Apply 1 Application topically Twice daily as needed., Di sp: , Rfl: 0 omeprazole (PRILOSEC) 20 mg capsule, Take 20 mg by mouth every morning (before breakfa st)., Disp: , Rfl: predniSONE (DELTASONE) 10 mg tablet, Take 10 mg by mouth Daily., Disp: , Rfl: PROAIR HFA 108 (90 BASE) MCG/ACT inhaler, INHALE 2 PUFFS INTO THE LUNGS EVERY 4 HOURS NEEDED FOR WHEEZING OR SHORTNESS OF BREATH, Disp: 3 each, Rfl: 2 sildenafil (VIAGRA) 100 MG tablet, Take 100 mg by mouth as needed., Disp: , Rfl: SPIRIVA RESPIMAT 2.5 MCG/ACT inhaler, USE 2 INHALATIONS DAILY, Disp: 3 Inhaler, Rfl: 1 terbinafine (LAMISIL) 250 MG tablet, take 1 tablet by mouth once daily for FUNGAL INFE CTION, Disp: , Rfl: 0 Immunizations: Immunization History Administered Date(s) Administered INFLUENZA 65 Y OR >, TRIVALENT HIGH-DOSE 08/19/2015, 08/15/2016, 08/02/2017 INFLUENZA PF 18 Y OR >,TRIVALENT RECOMBINANT 09/15/2011, 12/04/2012, 09/07/2013, 2013 PNEUMOCOCCAL CONJUGATE 13-VALENT (PCV13) 08/07/2015 PNEUMOCOCCAL POLYSACCHARIDE 23-VALENT (PPSV23) 01/26/2013, 02/22/2014 TDAP, (ADOL/ADULT) 07/14/2012 ZOSTER, 1 DOSE (ADULT) 12/04/2012 Objective BP 122/78 | Pulse 124 | Temp 37.1 C (98.7 F) (Temporal) | Ht 1.6 m (5' 3") | Wt 63. 9 kg (140 lb 14 oz) | SpO2 94% Comment: 3 L PULSE | BMI 24.95 kg/m Physical Exam Constitutional: He is oriented to person, place, and time and well-developed, well-nourishe d, and in no distress. HENT: Nose: No mucosal edema. Right sinus exhibits no frontal sinus tenderness. Left sinus exhibi ts no frontal sinus tenderness. Mouth/Throat: Mucous membranes are normal. Neck: Trachea normal. Neck supple. No JVD present. Cardiovascular: Normal rate, S1 normal and S2 normal. An irregular rhythm present. No murmur heard. Pulmonary/Chest: No accessory muscle usage. No tachypnea. No respiratory distress. He has n o decreased breath sounds. He has wheezes (diffuse expiratory wheezes). He has no rhonchi. H e has no rales. Chest wall is not dull to percussion. Musculoskeletal: He exhibits no edema. Lymphadenopathy: He has no cervical adenopathy. Neurological: He is alert and oriented to person, place, and time. Gait normal. Skin: Skin is warm, dry and intact. No cyanosis. Nails show no clubbing. Data: None. Assessment 1. Acute bronchitis/COPD exacerbation potential trigger either an upper respiratory trac t infection and/or worsening air quality. Allergen shortness of breath is only mildly incre ased though the patient is coughing very frequently. Vital signs stable. No worsening hypox emia. We will initiate treatment with an antibiotic and hold his azithromycin. A prednisone tape r will also be prescribed. Given the severity of the patient's lung disease I am concerned that he very well might not turn around without hospitalization. ) Follow-up is recommended. 2. Frequent exacerbations of COPD currently treated with Daliresp and 3 times a week charmaine thromycin. Up until a couple weeks ago Edmund had an entire 3 months without an apparent COPD exacerbation. This would be considered an overall improvement. 3. COPD Gold stage IV. Currently treated with high-dose Advair, Spiriva, prednisone dos e to 10 mg a day and as needed Xopenex via nebulizer and ProAir. Attempts to wean the patie nt off of prednisone have not been successful. 4. Hypoxemia slight increase in oxygen requirements since our last clinic appointment. The patient adjusts his supplemental oxygen to an O2 saturation between 88 and 92%. Total duration of the patient's clinic appointment was in excess of 30 minutes. Greater th an 50% time was spent in counseling related to management of his apparent acute bronchitis/C OPD exacerbation. Plan 1. Levaquin 500 mg a day for 5 days. The patient will hold his azithromycin while taking Levaquin. 2. Prednisone taper starting at 40 mg a day and decreasing by 10 mg every 3 days until he is down to his standard 10 mg dose. 3. Pulmonary clinic follow-up appointment in 2 weeks' time. CC: Nahum Brandon MDin this encounter Plan of Treatment Not on fileas of this encounter Visit Diagnoses + + | Diagnosis | + + | COPD with acute bronchitis (HCC) - Primary | + + | Obstructive chronic bronchitis with acute bronchitis | + + | COPD, very severe (HCC) | + + | Chronic airway obstruction, not elsewhere classified | + + | COPD, frequent exacerbations (HCC) | + + | Chronic airway obstruction, not elsewhere classified | + + | Hypoxemia | + +
--- OUTSIDE RECORDS SUMMARY | ~2018-06-29 | XMS | Encounter Summary ---
Demographics + + + | Address | [address] | | | [place] [address] | + + + | Home Phone | | + + + | Preferred Language | Unknown | + + + | Marital Status | | + + + | Amish Affiliation | 1077 | + + + | Race | Unknown | + + + | Ethnic Group | Unknown | + + + Author + + + | Author | [facility] | | | and [place] | + + + | Organization | [facility] | | | and [place] | + + + | Address | Unknown | + + + | Phone | Unavailable | + + + Support + + + + + | Name | Relationship | Address | Phone | + + + + + | Amaya Walker | ECON | [address] | | | | | [place] | | | | | [address] | | + + + + + Care Team Providers + +------+ + | Care Ui Developer Name | Role | Phone | + [...] | PULMONARY [address] | [address] | | | | | [place], | [place], [place] | | | | | [place] [address] | [place], [place] | | | | | [phone] | [address] | | | | | | | [...]
--- OUTSIDE RECORDS SUMMARY | ~2018-06-29 | XMS | Encounter Summary ---
Demographics + + + | Address | [address] | | | [place] [address] | + + + | Home Phone | | + + + | Preferred Language | Unknown | + + + | Marital Status | | + + + | Jainism Affiliation | 1077 | + + + | Race | Unknown | + + + | Ethnic Group | Unknown | + + + Author + + + | Author | [facility] | | | and [place] | + + + | Organization | [facility] | | | and [place] | + + + | Address | Unknown | + + + | Phone | Unavailable | + + + Support + + + + + | Name | Relationship | Address | Phone | + + + + + | Amaya Walker | ECON | [address] | | | | | [place] | | | | | [address] | | + + + + + Care Team Providers + +------+ + | Care Fish Butcher Name | Role | Phone | + [...] Description | +--------+--------+ + + + | 06/23/ | Refill | [facility] [place] | Harpreet Momin, | Medication Refill | | 2017 | | PULMONARY [address] | [address] | | | | | [place], | [place], [place] | | | | | [place] [address] | [place], [place] | | | | | [phone] | [address] | | | | | | | [...]
--- OUTSIDE RECORDS SUMMARY | ~2018-06-29 | XMS | Encounter Summary ---
Demographics + + + | Address | [address] | | | [place] [address] | + + + | Home Phone | | + + + | Preferred Language | Unknown | + + + | Marital Status | | + + + | Sikh Affiliation | 1077 | + + + | Race | Unknown | + + + | Ethnic Group | Unknown | + + + Author + + + | Author | [facility] | | | and [place] | + + + | Organization | [facility] | | | and [place] | + + + | Address | Unknown | + + + | Phone | Unavailable | + + + Support + + + + + | Name | Relationship | Address | Phone | + + + + + | Amaya Walker | ECON | [address] | | | | | [place] | | | | | [address] | | + + + + + Care Team Providers + +------+ + | Care Lead Applications Developer Name | Role | Phone | [...] | PULMONARY [address] | [address] | | | | | [place], | [place], [place] | | | | | [place] [address] | [place], [place] | | | | | [phone] | [address] | | | | | | | [...]
--- OUTSIDE RECORDS SUMMARY | ~2018-06-29 | XMS | Clinical Summary ---
Demographics + + + | Address | [address] | | | [place] [address] | + + + | Home Phone | | + + + | Preferred Language | Unknown | + + + | Marital Status | | + + + | Bahai Affiliation | 1077 | + + + | Race | Unknown | + + + | Ethnic Group | Unknown | + + + Author + + + | Author | [facility] | | | and [place] | + + + | Organization | [facility] | | | and [place] | + + + | Address | Unknown | + + + | Phone | Unavailable | + + + Support + + + + + | Name | Relationship | Address | Phone | + + + + + | Amaya Enciso | ECON | [address] | | | | | [place] | | | | | [address] | | + + + + + Care Team Providers + +------+ + | Care Geophysical Laboratory Chief Name | Role | Phone | + [...] | | | | | | | ([facility]) | SHORTNESS OF BREATH | | | [...] +--------+ +---------+ | MEDICARE | MEDICA | [id number] | Medica | [phone] | | | RE | | re | [phone] | | | | PART A | | | | | | | AND B | | | | | + +--------+ +--------+ +---------+ | | TRICAR | [id number] | Indemn | [phone] | | [...] | 1950 | [phone] | [place] [address] | | | sl[place] | | | [phone] | | + +--------+ +--------+ + +
--- OUTSIDE RECORDS SUMMARY | ~2018-06-29 | XMS | Encounter Summary ---
Demographics + + + | Address | [address] | | | [place] [address] | + + + | Home Phone | | + + + | Preferred Language | Unknown | + + + | Marital Status | | + + + | Scientologist Affiliation | 1077 | + + + | Race | Unknown | + + + | Ethnic Group | Unknown | + + + Author + + + | Author | [facility] | | | and [place] | + + + | Organization | [facility] | | | and [place] | + + + | Address | Unknown | + + + | Phone | Unavailable | + + + Support + + + + + | Name | Relationship | Address | Phone | + + + + + | Amaya Walker | ECON | [address] | | | | | [place] | | | | | [address] | | + + + + + Care Team Providers + +------+ + | Care Steel Post Installer Name | Role | Phone | + [...] | PULMONARY [address] | [address] | | | | | [place], | [place], [place] | | | | | [place] [address] | [place], [place] | | | | | [phone] | [address] | | | | | | | [...]
--- OUTSIDE RECORDS SUMMARY | ~2018-06-29 | XMS | Clinical Summary ---
Demographics + + + | Address | [address] | | | [place] [address] | + + + | Home Phone [...] + | Author | [facility] | | | and [place] | + + + | Organization | [facility] | | | and [place] | + + + | Address | Unknown | + + + | Phone | Unavailable | + + + Support + + + + + | Name | Relationship | Address | Phone | + + + + + | Amaya Enciso | ECON | [address] | | | | | [place] | | | | | [address] | | + + + + + Care Team Providers + +------+ + | Care Cellophane Tester Name | Role | Phone | + [...] | | | | | | | ([facility]) | SHORTNESS OF BREATH | | | [...] +--------+ +---------+ | MEDICARE | MEDICA | [id number] | Medica | [phone] | | | | RE | | re | [phone] | | | | PART A | | | | | | | AND B | | | | | + +--------+ +--------+ +---------+ | | TRICAR | [id number] | Indemn | [phone] | | [...] | 1950 | [phone] | [place] [address] | | | [place] | | | [phone] | | + +--------+ +--------+ + +
--- OUTSIDE RECORDS SUMMARY | ~2018-06-29 | XMS | Encounter Summary ---
Demographics + + + | Address | [address] | | | [place] [address] | + + + | Home Phone | | + + + | Preferred Language | Unknown | + + + | Marital Status | | + + + | Shinto Affiliation | 1077 | + + + | Race | Unknown | + + + | Ethnic Group | Unknown | + + + Author + + + | Author | [facility] | | | and [place] | + + + | Organization | [facility] | | | and [place] | + + + | Address | Unknown | + + + | Phone | Unavailable | + + + Support + + + + + | Name | Relationship | Address | Phone | + + + + + | Amaya Walker | ECON | [address] | | | | | [place] | | | | | [address] | | + + + + + Care Team Providers + +------+ + | Care Repair Coil Winder Name | Role | Phone | + [...] + + | 06/12/ | Office | [facility] [place] | Harpreet Momin, | COPD with acute | | 2018 | Visit | PULMONARY [address] | bronchitis (HCC) | | | | [place], | [place], [place] | (Primary Dx); COPD, | | | | [place] [address] | [place], [place] | very severe (HCC); | | | | [phone] | [address] | COPD, frequent | | | | [...] information carefully each time. Talk to your environmental intern regarding the use of this medicine in children. While this drug m ay be prescribed for children as young as 6 months for selected conditions, precautions do a pply. What side effects may I notice from receiving this medicine? Side effects that you should report to your doctor or health direct support professional caregiver as soon as p ossible: allergic reactions [...] attention (report to your doctor or health direct support professional caregiver if they continue or are bothersome): constipation [...] and 86 degrees F). Keep in a [employer]ey closed container. Throw away any unused medicine [...] watery. Check with your doctor or health direct support professional caregiver if you get an attack of severe [...] pharmacist, or health care provider. 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 Edmund also uses Hafsa rest [...] and does produce mucous. The mucous is sales rep yellow in color. They have not had [...]
--- OUTSIDE RECORDS SUMMARY | ~2018-06-29 | XMS | Encounter Summary ---
Demographics + + + | Address | [address] | | | [place] [address] | + + + | Home Phone | | + + + | Preferred Language | Unknown | + + + | Marital Status | | + + + | Mosque Affiliation | 1077 | + + + | Race | Unknown | + + + | Ethnic Group | Unknown | + + + Author + + + | Author | [facility] | | | and [place] | + + + | Organization | [facility] | | | and [place] | + + + | Address | Unknown | + + + | Phone | Unavailable | + + + Support + + + + + | Name | Relationship | Address | Phone | + + + + + | Amaya Walker | ECON | [address] | | | | | [place] | | | | | [address] | | + + + + + Care Team Providers + +------+ + | Care Lease Operator Name | Role | Phone | [...] + + | 06/12/ | Office | [facility] [place] | Harpreet Momin, | COPD with acute | | 2018 | Visit | [address]ULMONARY [address] | bronchitis (HCC) | | | | [place], | [place], [place] | (Primary Dx); COPD, | | | | [place] [address] | [place], [place] | very severe (HCC); | | | | [phone] | [address] | COPD, frequent | | | | [...] information carefully each time. Talk to your cafeteria supervisor regarding the use of this medicine in children. While this drug m ay be prescribed for children as young as 6 months for selected conditions, precautions do a pply. What side effects may I notice from receiving this medicine? Side effects that you should report to your doctor or health lawn caretaker as soon as p ossible: allergic reactions [...] attention (report to your doctor or health lawn caretaker if they continue or are bothersome): constipation [...] and 86 degrees F). Keep in a [employer] closed container. Throw away any unused medicine [...] watery. Check with your doctor or health lawn caretaker if you get an attack of severe [...] pharmacist, or health care provider. Copyright 2017 [employer]-1 in this encounter Progress Notes Harpreet Momin [...] of Advair, Spiriva and prednisone for their PATIENT SERVICES SPECIALIST D. Edmund also uses Ahfsa rest and 3 times a week azithromycin. [...] and does produce mucous. The mucous is optometrist yellow in color. They have not had [...]
--- OUTSIDE RECORDS SUMMARY | ~2018-06-29 | XMS | Encounter Summary ---
Demographics + + + | Address | [address] | | | [place] [address] | + + + | Home Phone | | + + + | Preferred Language | Unknown | + + + | Marital Status | | + + + | Pentecostal Affiliation | 1077 | + + + | Race | Unknown | + + + | Ethnic Group | Unknown | + + + Author + + + | Author | [facility] | | | and [place] | + + + | Organization | [facility] | | | and [place] | + + + | Address | Unknown | + + + | Phone | Unavailable | + + + Support + + + + + | Name | Relationship | Address | Phone | + + + + + | Amaya Walker | ECON | [address] | | | | | [place] | | | | | [address] | | + + + + + Care Team Providers + +------+ + | Care Industrial Electrical Engineer Name | Role | Phone | + [...] | PULMONARY [address] | MD [address] | | | | | [place], | [place] | | | | | [place] [address] | [place], [place] | | | | | [phone] | [address] | | | | | | | [...]
[~2018-06-29 15:45] MED LIST changes: +XANAX0.25 MG PO
--- NOTE | 2018-06-29 18:54 | NUR ---
PT ARRIVED TO UNIT VIA STRETCHER. ALERT AND ORIENTED. DENIES PAIN OR NAUSEA. REPORT SOB BUT STATES "IT'S MUCH BETTER THAN IT WAS EARLIER." IV FLUSHED WELL, IVF STARTED. SKIN GROSSLY INTACT BUT DRY AND FRAGILE. PT SATTING 96% ON 3L NC, OCC DRY COUGH NOTED. 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 DINNER ARRIVED AND PT EATING INDEPENDENTLY. CALL LIGHT WITHIN REACH.
--- NOTE | 2018-06-29 19:05 | NUR ---
REPORT RECIEVED FROM KELLY SILVA. PT SITTING UP IN BED, EATING. ON 2 L OXYGEN NC. LR BOLUS INFUSING WNL. NO COMPLAINTS OF SOB AT THIS TIME. BED ALARM ON AND EDUCATED TO USE CALL LIGHT WHEN NEEDED.
--- NOTE | 2018-06-29 21:08 | NUR ---
ASSESSMENT COMPLETE. 2 L OXYGEN NC, OXYGEN SATURATION 96%. DIMINISHED LUNG SOUNDS LOWER LOBES, EXPIRATORY WHEEZE LEFT UPPER LOBE. IVF INFUSING WNL. I.S. AND CORNET USED BY PT WHEN IN ROOM. PT DENIES TOILETING NEEDS AT THIS TIME. CALL LIGHT IN REACH.
--- NOTE | 2018-06-29 21:29 | NUR ---
CALL LIGHT ANSWERED. PT REQUESTED HUMIDIFICATION. RT CALLED, JEROTA PLACED HUMIDIFICATION ON PT.
--- NOTE | 2018-06-29 22:18 | NUR ---
ANSWERED CALL LIGHT. PT REQUESTED TO USE RESTROOM. INF INFUSING WNL. ENCOURAGED PT TO PULL CALL LIGHT WHEN FINISHED.
--- NOTE | 2018-06-29 23:45 | NUR ---
CALL LIGHT ANSWERED, SBA TO RESTROOM. PT INSTRUCTED TO USE CALL LIGHT WHEN FINSIHED, VERBALIZES UNDERSTANDING.
--- NOTE | 2018-06-30 02:11 | NUR ---
ASSESSMENT COMPLETE. OXYGEN SATURATION 98% ON 2 L NC. LUNG SOUNDS CLEAR THROUGHOUT, EXP WHEEZE IN UPPER LEFT LOBE. IVF INFUSING WNL. NO NEEDS AT THIS TIME. CALL LIGHT IN REACH.
--- NOTE | 2018-06-30 03:58 | NUR ---
CALL LIGHT ANSWERED, SBA TO RESTROOM FOR VOID, INSTRUCTED TO USE CALL LIGHT WHEN FINSIHED, PT VERBALIZES UNDERSTANDING.
--- NOTE | 2018-06-30 04:05 | NUR ---
CALL LIGHT ANSWERED, SBA BACK TO BED FROM RESTROOM. PT ON 2L OXYGEN BY NC. RT JONNATHAN IN ROOM FOR BREATHING TX. CALL LIGHT IN REACH.
--- NOTE | 2018-06-30 05:19 | NUR ---
PT SLEPT THROUGHOUT SHIFT. SBA TO RESTROOM. PT O2 SATURATIONS WNL ON 2 L NC. IVF INFUSING WNL. PT RECEIVING SCHEDULED BREATHING TX. EXP WHEEZE LEFT UPPER LOBE, REMAINING LUNG SOUNDS CLEAR. PT USED I.S. AND CORNET THROUGHOUT SHIFT. PT USED CALL LIGHT APPROPRIATELY.
--- NOTE | 2018-06-30 06:49 | NUR ---
CALL LIGHT ANSWERED, SBA BACK TO BED AFTER VOID. SCHEDULED MEDICATION AND PRN COUGH MEDICATION ADMINISTERED. PT ON 2L OXYGEN BY NC, DENIES SOB, OCCASIONAL DRY COUGH. PT GIVEN PHONE TO ORDER BREAKFAST. CALL LIGHT IN REACH. IVF INFUSING WNL.
--- NOTE | 2018-06-30 07:27 | NUR ---
PT IN BED, SITTING UP. AWAKE, ALERT. RECIEVED BEDSIDE REPORT FROM CHEMO, MARIBELL. PT'S PERSONAL SUPPLIES AND CALL BUTTON IN REACH. PT ON 2L O2 VIA NC.
--- NOTE | 2018-06-30 07:59 | NUR ---
PATIENT SITTING UP IN BED, EATING BREAKFAST. ORAL CARE AND AM CARE SET UP ON BEDSIDE TABLE FOR PATIENT. CALL LIGHT IN REACH. NO OTHER NEEDS AT THIS TIME.
--- NOTE | 2018-06-30 08:32 | NUR ---
PATIENT REFUSED AM CARE AND ORAL CARE STATING HE ALREADY PERFORMED BOTH THIS MORNING. PATIENT CALL LIGHT IN REACH. NO OTHER NEEDS AT THIS TIME.
--- NOTE | 2018-06-30 08:38 | NUR ---
PT SITTING UP IN BED. GAVE AM MEDICATIONS, WITH PURPOSE AND SIDE EFFECT EDUCATION GIVEN. PT ATE 25% OF A LARGE BREAKFAST. DECLINED AN ENSURE. PT DRINKING WATER WELL, REFILLED WITH TAP WATER PER PT'S REQUEST. PERSONAL SUPPLIES AND CALL LIGHT IN REACH. PT DENIED OTHER NEEDS.
--- NOTE | 2018-06-30 09:22 | NUR ---
THIS BEAUTY SPECIALIST ASSISTED PATIENT UP INTO BATHROOM. PATIENT BEGAN FEELING SMALL CHEST PAINS BELOW HIS DIAPHRAGM AND HAVING DIFFICULTY BREATHING. RN IN ROOM TO ASSESS PATIENT. PATIENT SITTING UP IN BED AT THIS TIME, INCENTIVE SPIROMETER USE ENCOURAGED. LINENS CHANGED. RN NOTIFIED OF PULSE AND RESPIRATIONS THAT ARE NOT WITHIN NORMAL LIMITS. CALL LIGHT IN REACH. NO OTHER NEEDS AT THIS TIME.
[2018-06-30] MEDS ORDERED: ALPRAZOLAM0.25 MG PO (09:37)
--- NOTE | 2018-06-30 11:19 | NUR ---
PT IN BED, AWAKE, ALERT, ORIENTED. RESPIRATORY RATE INCREASED TO 28 BREATHS PER MINUTE, PT REPORTS FEELING SHORT OF BREATH FOLLOWING AMBULATION TO AND FROM BATHROOM. PT ON 2L OXYGEN VIA NC, OXYGEN SATURATION LEVEL 95%.
--- NOTE | 2018-06-30 12:12 | NUR ---
PT REPORTED TO THIS RN THAT HIS THROAT FEELS SORE. REQUESTED CEPACOL LOZENGES. NOTIFIED DR. HOPKINS OF PT'S REQUEST. DR. HOPKINS STATED THAT HE WOULD PLACE ORDER.
--- NOTE | 2018-06-30 13:30 | NUR ---
DR. HOPKINS IN TO SEE PT, DISCUSSED PLAN OF CARE WITH PT, WELL ASSESSING PT. DR. HOPKINS GAVE ORDER TO STOP IVF ONCE CURRENT BAG IS COMPLETE. PT SITTING UP AT EDGE OF BED. REMAINS ON 2L O2 VIA NC. LUNGS CLEAR IN UPPER LOBES, DIMINISHED IN LOWER LOBES WITH FAINT WHEEZE NOTED IN RIGHT LOWER LOBE. PT HAS PERSONAL SUPPLIES AND CALL LIGHT IN REACH. JUST RETURNED FROM BATHROOM PRIOR TO DR. HOPKINS COMING IN TO SEE PT.
--- NOTE | 2018-06-30 13:53 | NUR ---
PATIENT RESTING IN BED, PATIENT HAS SHALLOW COUGH AT TIMES. RN NOTIFIED OF PATIENT'S ELEVATED PULSE AND RESPIRATIONS. CALL LIGHT IN REACH. NO OTHER NEEDS AT THIS TIME.
--- NOTE | 2018-06-30 14:20 | NUR ---
PT IN BED, AWAKE, ALERT. REMAINS ON 2L O2 VIA NC. OXYGEN SATURATION LEVEL 96%. PT HAS A DRY NON PRODUCTIVE COUGH. PT'S PERSONAL SUPPLIES AND CALL LIGHT IN REACH. PT ORDERING DINNER AND BREAKFAST AT THIS TIME.
--- NOTE | 2018-06-30 15:24 | EKG ---
[facility] [address] [place], [place] [address] Signed Sinus tachycardia Nonspecific ST abnormality Abnormal ECG When compared with ECG of 14-JUN-2018 16:44, No significant change was found Confirmed by BOOM REYES MD ([id number]) on 06/30/2018 3:24:43 PM Electronically Signed By: BOOM REYES MD 06/30/18 1524 PATIENT NAME: BARRIE ENCISOCathy GARCIA Electrocardiogram DATE OF : 46 PHYSICIAN: BOOM REYES MD REPORT #: [id number] REPORT IS CONFIDENTIAL AND NOT TO BE RELEASED WITHOUT AUTHORIZATION
--- NOTE | 2018-06-30 15:34 | NUR ---
PT IN BED. DENIED NEEDS. ATE A BANANA FOR A SNACK. PERSONAL SUPPLIES AND CALL LIGHT IN REACH. PT REMAINS ON 2L O2 VIA NC. OXYGEN SATURATION LEVEL 95%.
--- NOTE | 2018-06-30 15:59 | NUR ---
PATIENT RESTING IN BED, CALL LIGHT IN REACH. NO OTHER NEEDS AT THIS TIME.
[2018-06-30] MEDS ORDERED: PREDNISONE10 MG PO (16:33)
--- NOTE | 2018-06-30 16:40 | NUR ---
PT'S HR 124, RESPIRATORY RATE 28-30 BREATHS PER MINUTE WHEN PT RETURNS TO BED AFTER USING BATHROOM. TOLERANCE OF ACTIVITY IS STILL POOR, PT BECOMING SHORT OF BREATH AFTER SHORT PERIODS OF LIGHT ACTIVITY, TAKING AROUND 5 MINUTES TO RECOVER. NOTIFIED DR. REYES OF THIS VIA TELEPHONE. NO NEW ORDERS AT THIS TIME. ASKED DR. REYES IF SHE WANTED TO HAVE A MAGNESIUM LEVEL DRAWN, PT'S MAGNESIUM LEVEL WAS 1.6 YESTERDAY, THEN PT RECIEVED IV MAGNESIUM. DR. REYES STATED THAT SHE DID NOT.
--- NOTE | 2018-06-30 17:20 | NUR ---
ASSESSMENT DUE. PATIENT IN BED VISITING WITH . PATIENT REQUESTED LOZENGE FOR SORE THROAT. MEDICATIONS GIVEN (SEE MAR). ASSESSMENT DONE. LUNG SOUNDS DIMINISHED. PATIENT TACHYCARDIC 119 BPM, MD AWARE. PATIENT DENIES PAIN. PATIENT IN BED, EATING DINNER WITH AT BED SIDE. CALL LIGHT WITHIN REACH. NO FURTHER REQUESTS AT THIS TIME.
--- NOTE | 2018-06-30 17:56 | NUR ---
PATIENT RESTING IN BED, EATING DINNER. CALL LIGHT IN REACH. NO OTHER NEEDS AT THIS TIME.
--- NOTE | 2018-06-30 18:05 | NUR ---
PATIENT HERE FOR COPD. PATIENT USES 2L NC O2 AT NIGHT CRHONICALLY. CURRENTLY ON 2L O2 BY NC CONTINUOUS. TACHYCARDIC. NOTIFY MD IF HEART RATE IS 150 SUSTAINED. NON-ROUTINE VITALS ORDERED Q4H. SALINE LOCK. PATIENT USES CALL LIGHT APPROPRIATELY.
--- NOTE | 2018-06-30 19:10 | NUR ---
REPORT RECEIVED FROM ROBERTA RN. PT RESTIN GSUPINE IN BED WATCHING TV O2 AT 2LPNC AND PT DENIES SOB AT THIS TIME. PT APPEARS COMFORTABLE AND DENIES NEEDS AT THIS TIME. CALL LIGHT AND H20 IN REACH.
--- NOTE | 2018-06-30 20:10 | NUR ---
PT SITTING SUPINE IN BED WATCHING TV, PT REMAIN ON 2.5LPNC AND DENIES SOB. ASSESSMENT COMPLETED. CALL LIGHT AND H20 REMAIN IN REACH AND NO NEEDS VOICED.
--- NOTE | 2018-06-30 22:07 | NUR ---
PATIENT TOOK SHOWER. PATIENT IS BACK IN BED NOW. CLEANED AND DRIED THE BATHROOM.
--- NOTE | 2018-06-30 22:15 | NUR ---
PT RESTING IN BED WATCHING TV. PT SPEAKS FULL SENTANCES AND DENIES NEEDS AT THIS TIME. PT REMAINS ON 2.5LPNC AND APPEARS TO BE IN NO DISTRESS. CALL LIGHT AND H20 IN REACH.
--- NOTE | 2018-07-01 00:20 | NUR ---
PT RESTING SUPINE IN BED, 2.5LPNC REMAINS IN PLACE, EYES CLSOED AND PT APPEARS TO BE SLEEPING COMFORTABLY. RESPIRATIONS EVEN AND UNLABORED. CALL LIGHT AND H20 IN REACH.
--- NOTE | 2018-07-01 01:21 | NUR ---
pt reports coughing and tesselon pearls administered po per pt request. call light/h20 in reach and pt denies having any further needs. Pt denies having sob at this time and remains on 2.5lpnc satting at 98%.
--- NOTE | 2018-07-01 03:32 | NUR ---
PT RESTING ON RIGHT LATERAL SIDE WITH EYES CLOSED ADN RESPIRATIONS EVEN AND UNLABORED AT 18. PT'S EYES CLOSED AND HE APPEARS TO BE SLEEPING COMFORTABLY. 2.5LPNC REMAINS IN PLACE. CALL LIGHT/H20 IN REACH.
--- NOTE | 2018-07-01 05:10 | NUR ---
PT RESTING IN BED, EYES CLOSED AND PT APPEARS TO BE SLEEPING COMFORTABLY. CALL LIGHT IN REACH AND PT REMAINS ON 2.5LPNC.
--- NOTE | 2018-07-01 06:52 | NUR ---
PT APPEARED TO HAVE SLEPT WELL THROUGHOUT THE NIGHT AND DENIES SOB ON 2.5LPNC. PT SATTING IN MID 90'S AND HR HAS RANGED BETWEEN 100'S AND ONE TEENS. LUNG SOUNDS REMAIN CLEAR BUT DISTANT THROUGHOUT. PT AMBULATES SBA WITH FWW. IV REMAINS PATENT AND PT TAKING IV SOLUMEDROL. PT HAS NOT REPORTED ANY PAIN THIS SHIFT.
--- NOTE | 2018-07-01 07:47 | NUR ---
STOPPED IN FOR A MOMENT TO CHECK ON PT. HE WAS SITTING UP IN BED, ALERT AND ORIENTED. PT STATED HE WAS DOING FINE, WILL FOLLOW NEEDED
--- NOTE | 2018-07-01 09:50 | NUR ---
CHANGE OF SHIFT: ROUNDED WITH RAKEL MENDOZA FOR CHANGE OF SHIFT REPORT. PATIENT RESTING COMFORTABLY IN BED. O2 AT 2.5 L VIA NC. WHITE BOARD UPDATED. POSSESSIONS WITHIN REACH. NO COMPLAINTS AT THIS TIME. 0948: ROUNDED ON PATIENT FOR MORNING ASSESSMENT AND MEDICATION ADMINISTRATION. PATIENT WAS WALKING BACK TO BED AFTER USING THE RESTROOM, SITTING COMFORTABLY IN BED. AIRCRAFT PARTS ASSEMBLER IN ROOM TAKING VITALS. CALL LIGHT WITHIN REACH. POSSESSIONS AT BEDSIDE. NO COMPLAINTS OF PAIN.
--- NOTE | 2018-07-01 10:20 | NUR ---
PATIENT RESTING COMFORTABLY IN BED. BENZONATATE ADMINISTERED. WEARS PERSONAL PULSE OX TO MONITOR HEART RATE, WILL CONTINUE TO MONITOR.
--- NOTE | 2018-07-01 11:04 | NUR ---
Medications reconciled using pharmacy records and patient interview
--- NOTE | 2018-07-01 17:12 | NUR ---
ROUNDED ON PATIENT RESTING COMFORTABLY IN BED, EATING DINNER. NO COMPLAINTS OF PAIN. POSSESSIONS WITHIN REACH. DISCUSSED USE OF IS, PATIENT EXPRESSES UNDERSTANDING AND STATED THAT THEY USED THE DEVICE WITH RESPIRATORY THERAPY. HR STILL REMAINS IN THE HIGH 100'S, NO COMPLAINTS OF BEING LIGHTHEADED OR DIZZY. WILL CONTINUE TO MONITOR.
--- NOTE | 2018-07-01 18:34 | NUR ---
PATIENT IS ALERT AND ORIENTED X4. REGULAR DIET. SBA, WITH STEADY GAIT. 2.5L CHRONIC NC TODAY. HEART RATE IS CONSISTANTLY IN THE HIGH 100'S. PATIENT WEARS A PERSONAL PULSE OX AND MONITORS O2 SATS AND HR THROUGHOUT THE DAY. HR INCREASES WITH EXERCISE, REDUCES WHEN RESTING, CALL MD IF HR IS SUSTAINED OVER 150 BPM. CONSULTED WITH PT AND RT TODAY. IS AND ACAPPELLA AT BEDSIDE.
--- NOTE | 2018-07-01 19:10 | NUR ---
REPORT RECEIVED FROM DAYSTNFT RN. PT RESTING IN BED, EYES CLOSED AND APPEARS TO BE SLEEPING 2.5LPNC IN PLACE AND PT APPEARS TO BE IN NO DISTRESS. CALL LIGHT AND H20 IN REACH.
--- NOTE | 2018-07-01 20:40 | NUR ---
VITALS AND I&OS DONE AND CHARTED. BEDSIDE TABLE AND CALL LIGHT WITHIN REACH.
[2018-07-01] MEDS ORDERED: GUAIFENESIN-CODE5 ML PO (21:32)
--- NOTE | 2018-07-01 21:55 | NUR ---
pt resting in bed, hs medications administered. pt reports mild headache, so prn po tylenol to be administered. call light/h20 in reach and no further requests voiced. pt remains on 2.5lpnc and appears to be in no distress.
--- NOTE | 2018-07-01 21:55 | NUR ---
pt resting in bed, hs medications administered. pt alert to person place and situation. cpap in place. Call light and ice water in reach.
--- NOTE | 2018-07-02 00:02 | NUR ---
pt up to brush teeth and shower. Pt ambulates with steady gait and denies dizziness or pain and states "oh no I'm doing fine, I'm just doing my nightly routine". pt agrees to use call light if he needs assistance.
--- NOTE | 2018-07-02 01:16 | NUR ---
VITALS AND I&OS DONE AND CHARTED. BEDSIDE TABLE AND CALL LIGHT WITHIN REACH.
--- NOTE | 2018-07-02 01:48 | NUR ---
IN TO SEE PATIENT. PT RESTING IN BED EYES CLOSED AND RESPIRATIONS EVEN AND UNLABORED ON 2LPNC. PT ALERT TO VOICE AND ASSESSMENT COMPLETED. CALL LIGHT AND H20 IN REACH. NO NEEDS VOICED.
--- NOTE | 2018-07-02 05:32 | NUR ---
IN TO ANSWER CALL LIGHT. PER PT REQUEST URINAL EMPTIED OF CLEAR YELLOW URINE. PT DENIES FURTHER NEEDS. call light/h20 in reach. pt remains on 2.5lpnc and appears to be in no distress.
--- NOTE | 2018-07-02 05:42 | NUR ---
VITALS AND I&OS DONE AND CHARTED. BEDSIDE TABLE AND CALL LIGHT WITHIN REACH. PT NEEDS NOTHING AT THIS TIME.
--- NOTE | 2018-07-02 05:50 | NUR ---
PT APPEARED TO HAVE SLEPT MAJORITY OF NIGHT. PT HAS NOT REPORTED SOB WHILE ON 2.5LPNC, LUNG SOUNDS REMAIN CLEAR BUT DISTANT TO AUSCULTATION. PT CONTINUES TO RECEIVE NEB TREATMENTS. PT IS SBA WITH STEADY GAIT. HR CONTINUES TO BE TACHYCARDIC WITH HR RANGING FROM 100'S TO 110'S. PT NOW TAKING PO PREDNISONE AND CONTINUES ON ORAL ANTIBIOTICS AND TESSALON PEARLS Q8PRN.
--- NOTE | 2018-07-02 09:00 | NUR ---
PT RESTING IN BED, NO DISTRESS. PT CHRONIC O2 USER, USING NC. PT ABLE TO FOLLOW COMMANDS, MAKE NEEDS KNOWN, AND MOVE WITH MINIMAL ASSIST IN BED. WILL CONTINUE TO MONITOR.
--- NOTE | 2018-07-02 14:00 | NUR ---
BROUGHT PATIENT A CUP OF ICE AND A SODA. PATIENT SHOWERED LAST NIGHT. PATIENT GOT HIMSELF DRESSED AND PACKED UP HE WILL BE LEAVING AROUND 1430 TODAY. GO AND GET HIS DISHCHARGE VITALS.
== END 2018-07-02 14:36 | disposition home or self-care (01) | DRG 191 ==
LOC: ED 15:45 → MS 17:20
PROVIDERS: ADMIT Internal Medicine
DX: J44.1 Chronic obstructive pulmonary disease with (acute) exacerbation (principal); R65.10 Systemic inflammatory response syndrome (SIRS) of non-infectious origin without acute organ dysfunction; J96.11 Chronic respiratory failure with hypoxia; Z79.52 Long term (current) use of systemic steroids; K21.9 Gastro-esophageal reflux disease without esophagitis; E03.9 Hypothyroidism, unspecified; F99 Mental disorder, not otherwise specified
CPT/HCPCS: 36415; 71045; 80048; 80053; 83605; 83735; 83880; 85025; 93005; 93010; 94640; 94667; 94668; 96374; 99285; J1650; J2930; J3475; J7120; J7512

== ENCOUNTER 2019-04-11 15:18 | Emergency (ER) | payer MEDICARE, OTHER ==
[~2019-04-11] VITALS: Ht 165.1 cm; Wt 70.5 kg
--- OUTSIDE RECORDS SUMMARY | ~2019-04-11 | XMS | Encounter Summary ---
Demographics + + + | Address | [address] | | | [place] [address] | + + + | Home Phone | | + + + | Preferred Language | Unknown | + + + | Marital Status | | + + + | Pentecostal Affiliation | 1077 | + + + | Race | Unknown | + + + | Ethnic Group | Unknown | + + + Author + + + | Author | [facility] | | | and [place] | + + + | Organization | [facility] | | | and [place] | + + + | Address | Unknown | + + + | Phone | Unavailable | + + + Support + + + + + | Name | Relationship | Address | Phone | + + + + + | Amaya Walker | ECON | [address] | | | | | [place] | | | | | [address] | | + + + + + Care Team Providers + +------+ + | Care Development Coach Name | Role | Phone | + +------+ + | Alexandra Leyva MD | PCP | | + +------+ + Reason for Visit + + + | Reason | Comments | + + + | Medication Refill | | + + + Encounter Details +--------+--------+ + + + | Date | Type | Department | Care Team | Description | +--------+--------+ + + + | 02/22/ | Refill | [facility] [place] | Harpreet Momin, | Medication Refill | | 2018 | | PULMONARY [address] | MD [address] | | | | | [place], | [place], [place] | | | | | [place] [address] | [address] | | | | | [phone] | | | +--------+--------+ + + + Social History + + + [...] | | | + +---+---+---+ + + +---------+ + | Alcohol Use [...] on file | | + + + + + + + | Job Start Date | Occupation | Industry | + + + + | Not on file | Not on file | Not on file | + + + + + + + + | Travel History | Travel Start | Travel End | + + + + + + | No recent travel history available. | + + documented as of this encounter Plan of Treatment +--------+---------+ + + + | Date | Type | Specialty | Care Team | Description | +--------+---------+ + + + | 04/16/ | Office | Pulmonology | Harpreet Momin, | | | 2019 | Visit | | [address] | | | | | | [place] | | | | | | [address] | | | | | | | | +--------+---------+ + + + documented as of this encounter Visit Diagnoses Not on filedocumented in this encounter"
--- OUTSIDE RECORDS SUMMARY | ~2019-04-11 | XMS | Encounter Summary ---
Demographics + + + | Address | [address] | | | [place] [address] | + + + | Home Phone | | + + + | Preferred Language | Unknown | + + + | Marital Status | | + + + | Nondenominational Affiliation | 1077 | + + + | Race | Unknown | + + + | Ethnic Group | Unknown | + + + Author + + + | Author | [facility] | | | and [place] | + + + | Organization | [facility] | | | and [place] | + + + | Address | Unknown | + + + | Phone | Unavailable | + + + Support + + + + + | Name | Relationship | Address | Phone | + + + + + | Amaya Walker | ECON | [address] | | | | | [place] | | | | | [address] | | + + + + + Care Team Providers + +------+ + | Care Cloth Bolt Bander Name | Role | Phone | + [...] [address] | | | | | [place], | [place], [place] | | | | | [place] [address] | [address] | | | | | [phone] | | | +--------+--------+ + + + [...] [place] | | | | | | [address] | | | | | | | | +--------+---------+ + + + documented as of this encounter Visit Diagnoses Not on filedocumented in this encounter"
--- OUTSIDE RECORDS SUMMARY | ~2019-04-11 | XMS | Clinical Summary ---
Demographics + + + | Address | [address] | | | [place] [address] | + + + | Home Phone | | + + + | Preferred Language | Unknown | + + + | Marital Status | | + + + | Amish Affiliation | 1077 | + + + | Race | Unknown | + + + | Ethnic Group | Unknown | + + + Author + + + | Author | [facility] | | | and [place] | + + + | Organization | [facility] | | | and [place] | + + + | Address | Unknown | + + + | Phone | Unavailable | + + + Support + + + + + | Name | Relationship | Address | Phone | + + + + + | Amaya Walker | ECON | [address] | | | | | [place] | | | | | [address] | | + + + + + Care Team Providers + +------+ + | Care Supervisor Heat Treating Name | Role | Phone | + +------+ + | Alexandra Leyva MD | PP | | + +------+ + Allergies + + + +--------+ + | Active Allergy | Reactions | Severity | Noted | Comments | | | | | Date | | + + + +--------+ + | Bee Venom | Swelling | High | | | + + + +--------+ + Medications + + + +---------+------+------+-------+ | Medication | Sig | Dispensed | Refills | Star | End | Statu | | | | | | t | Date | s | | | | | | Date | | | + + + +---------+------+------+-------+ | Ibuprofen 200 MG | 1-2 capsules by | | 0 | 09/1 | | Activ | | CAPS | mouth as needed | | | 3/20 | | e | | | | | | 12 | | | + + + +---------+------+------+-------+ | sildenafil | Take 100 mg by mouth | | 0 | | | Activ | | (VIAGRA) 100 MG | as needed. | | | | | e | | tablet | | | | | | | + + + +---------+------+------+-------+ | aspirin 325 mg | Take 325 mg by mouth | | 0 | | | Activ | | tablet | Daily. | | | | | e | + + + +---------+------+------+-------+ | benzonatate | Take 100 mg by mouth | | 0 | | | Activ | | (TESSALON) 100 mg | 3 times daily as | | | | | e | | capsule | needed. | | | | | | + + + +---------+------+------+-------+ | omeprazole | Take 20 mg by mouth | | 0 | | | Activ | | (PRILOSEC) 20 mg | every morning | | | | | e | | capsule | (before breakfast). | | | | | | + + + +---------+------+------+-------+ | cyclobenzaprine | Take one tablet | | 0 | 10/0 | | Activ | | (FLEXERIL) 10 mg | every 4 hours as | | | 8/20 | | e | | tablet | needed | | | 16 | | | + + + +---------+------+------+-------+ | | Take 1 tablet by | | 0 | 11/2 | | Activ | | HYDROcodone-acetamin | mouth every 6 hours | | | 20 | | e | | ophen (NORCO) 5-325 | as needed. | | | 16 | | | | mg per tablet | | | | | | | + + + +---------+------+------+-------+ | nystatin | Apply 1 Application | | 0 | 11/0 | | Activ | | (MYCOSTATIN) cream | topically Twice | | | 20 | | e | | | daily as needed. | | | 16 | | | + + + +---------+------+------+-------+ | citalopram | Take 10 mg by mouth | | 0 | 07/1 | | Activ | | (CELEXA) 10 mg | Daily. | | | 07/23 | | e | | tablet | | | | 17 | | | + + + +---------+------+------+-------+ | Cholecalciferol | Take 5,000 Units by | | 0 | | | Activ | | (VITAMIN D-3) 5000 | mouth Daily. | | | | | e | | units CAPS | | | | | | | + + + +---------+------+------+-------+ | levothyroxine | Take 100 mcg by | | 0 | 12/3 | | Activ | | [...] Take 10 mg by mouth | | 0 | | | Activ | | (DELTASONE) [...] + + + +---------+------+------+-------+ | predniSONE | TAKE 1 TABLET DAILY | 90 | 1 | 09/2 | | Activ | | (DELTASONE) 10 mg | | tablet | | 6/20 | | e | | tablet | | | | 18 | | | + + + +---------+------+------+-------+ | azithromycin | Take 1 tablet by | 36 | 1 | 11/0 | | Activ | | (ZITHROMAX) 500 MG | mouth Three times a | tablet | | 5/20 | | e | | tablet | week. | | | 18 | | | + + + +---------+------+------+-------+ | ADVAIR DISKUS | USE 1 INHALATION | 180 | 1 | 02/0 | | Activ | | 500-50 MCG/DOSE | TWICE A DAY | each | | 4/20 | | e | | diskus inhaler | | | | 19 | | | + + + +---------+------+------+-------+ | predniSONE | TAKE 1 TABLET DAILY | 90 | 0 | 04/0 | | Activ | | (DELTASONE) 10 mg | | tablet | | 2/20 | | e | | tablet | | | | 19 | | | + + + +---------+------+------+-------+ | SPIRIVA RESPIMAT | USE 2 INHALATIONS | 12 g | 3 | 04/2 | | Activ | | 2.5 MCG/ACT inhaler | DAILY | | | 2/20 | | e | | | | | | 19 | | | + + + +---------+------+------+-------+ | levalbuterol | USE 1 VIAL VIA | 1350 mL | 1 | 04/2 | | Activ | | (XOPENEX) 1.25 mg/3 | NEBULIZER EVERY 4 | | | 2/20 | | e | | mL nebulizer | HOURS NEEDED FOR | | | 19 | | | | solution | SHORTNESS OF BREATH | | | | | | | | (MAXIMUM OF 4 VIALS | | | | | | | | PER DAY) | | | | | | + + + +---------+------+------+-------+ | DALIRESP 500 MCG | TAKE 1 TABLET DAILY | 90 | 1 | 05/ | | Activ | | tablet | | tablet | | 12/23 | | e | | | | | | 19 | | | + + + +---------+------+------+-------+ | DALIRESP 500 MCG | TAKE 1 TABLET DAILY | 90 | 1 | 11/2 | 05/2 | Disco | | tablet | | tablet | | 6/20 | 2/20 | ntinu | | | | | | 18 | 19 | ed | + + + +---------+------+------+-------+ Active Problems + + + | Problem | Noted Date | + + + | COPD with acute bronchitis | 06/12/2018 | + + + | Tachycardia | 01/05/2018 | + + + | COPD, frequent exacerbations | 07/15/2017 | + + + | COPD, very severe | 07/19/2016 | + + + | [...] + + + +---+ | Panlobular emphysema | | + +---+ + + | [...] + | Nocturnal hypoxemia due to emphysema | 05/18/20 | | | | 13 [...] 3 | + + + + Encounters +--------+ + + + + | Date | Type | Specialty | Care Team | Description | +--------+ + + + + | 04/02/ | Telephone | | Harpreet Momin, | Appointment | | 2018 | | | MD | | +--------+ + + + + | 03/24/ | Refill | | Harpreet Momin, | Medication Refill | | 2018 | | | MD | | +--------+ + + + + | 02/26/ | Telephone | | Harpreet Momin, | Appointment | 2018 | | | MD | | +--------+ + + + + | 02/22/ | Refill | | Harpreet Momin, | Medication Refill | | 2018 | | | MD | | +--------+ + + + + | 02/22/ | Refill | | Harpreet Momin, | Medication Refill | | 2018 | | | MD | | +--------+ + + + + | 02/01/ | Refill | | Harpreet Momni, | Medication Refill | | 2018 | | | MD | | +--------+ + + + + from Last 3 Months [...] 1 DOSE | 12/04/2012 | | | (ZOSTAVAX) | | | + + + + [...] recent travel history available. | + + Last Filed Vital Signs + [...] + | Respiratory Rate | 26 | 10/13/20178 PST | + + + + | [...] + + | 04/16/ | Office | | Harpreet Momin, | | | 2019 | Visit | | MD [address] | | | | | | [place] | | | | | | [address] | | | | | | | [...] | + + + + + | AAA Screening | | | | | | 3 | | | + + + + + | Adult Annual | | | | | Wellness Visit | 5 | | | + + + + + | Lung Cancer | | 09/13/2014, 02/16/2013, | | | Screening | 5 | 12/29/2012, Additional history | | | | | exists | | + + + + + | Vaccine: Influenza | | 08/02/2017, 08/15/2016, | | | (Season Ended) | 9 | 08/19/2015, Additional history | | | [...] Last 3 Months Insurance + +--------+ +--------+ +---------+--------+ | Payer | Benefi | Subscriber | Effect | Phone | Address | Type | | | t Plan | ID | bryan | | | | | | / | | Dates | | | | | | Group | | | | | | + +--------+ +--------+ +---------+--------+ | MEDICARE | MEDICA | [id number] | | [phone] | | Medica | | | RE | | 013-Pr | 5 | | re | | | PART A | | esent | | | | | | AND B | | | | | | + +--------+ +--------+ +---------+--------+ | | TRICAR | [id number] | | [phone] | | Indemn | | | E FOR | | 014-Pr | 0 | | ity | | | LIFE | | esent | | | | + +--------+ +--------+ +---------+--------+ + +--------+ +--------+ + + | Guarantor Name | Accoun | Relation to | Date | Phone | Billing Address | | | t Type | Patient | of | | | | | | | | | | + +--------+ +--------+ + + | Edmund Walker | Person | Self | [birth year] | [address] | | | al/Fam | | 1950 | [phone] | [place] [address] | | | slava | | | 8 (Home) | | + +--------+ +--------+ + + Advance Directives Patient has advance care planning documents on file. For more information, please contact:[facility] [place] [address]
--- OUTSIDE RECORDS SUMMARY | ~2019-04-11 | XMS | Encounter Summary ---
Demographics + + + | Address | [address] | | | [place] [address] | + + + | Home Phone | | + + + | Preferred Language | Unknown | + + + | Marital Status | | + + + | Christian Affiliation | 1077 | + + + | Race | Unknown | + + + | Ethnic Group | Unknown | + + + Author + + + | Author | [facility] | | | and [place] | + + + | Organization | [facility] | | | and [place] | + + + | Address | Unknown | + + + | Phone | Unavailable | + + + Support + + + + + | Name | Relationship | Address | Phone | + + + + + | Amaya Walker | ECON | [address] | | | | | [place] | | | | | [address] | | + + + + + Care Team Providers + +------+ + | Care Cyber Instructor Name | Role | Phone | + [...] Description | +--------+--------+ + + + | 03/24/ | Refill | [facility] [place] | Harpreet Momin, | Medication Refill | | 2018 | | PULMONARY [address] | MD [address] | | | | | [place], | [place], [place] | | | | | [place] [address] | [address] | | | | | [phone] | | | +--------+--------+ + + + [...] [place] | | | | | | [address] | | | | | | | | +--------+---------+ + + + documented as of this encounter Visit Diagnoses Not on filedocumented in this encounter"
--- OUTSIDE RECORDS SUMMARY | ~2019-04-11 | XMS | Encounter Summary ---
Demographics + + + | Address | [address] | | | [place] [address] | + + + | Home Phone | | + + + | Preferred Language | Unknown | + + + | Marital Status | | + + + | Advent Affiliation | 1077 | + + + | Race | Unknown | + + + | Ethnic Group | Unknown | + + + Author + + + | Author | [facility] | | | and [place] | + + + | Organization | [facility] | | | and [place] | + + + | Address | Unknown | + + + | Phone | Unavailable | + + + Support + + + + + | Name | Relationship | Address | Phone | + + + + + | Amaya Walker | ECON | [address] | | | | | [place] | | | | | [address] | | + + + + + Care Team Providers + +------+ + | Care Escalator Mechanic Name | Role | Phone | + [...] [address] | | | | | [place], | [place], [place] | | | | | [place] [address] | [address] | | | | | [phone] | | | +--------+--------+ + + + [...] [place] | | | | | | [address] | | | | | | | | +--------+---------+ + + + documented as of this encounter Visit Diagnoses Not on filedocumented in this encounter"
--- OUTSIDE RECORDS SUMMARY | ~2019-04-11 | XMS | Encounter Summary ---
Demographics + + + | Address | [address] | | | [place] [address] | + + + | Home Phone | | + + + | Preferred Language | Unknown | + + + | Marital Status | | + + + | Voodoo Affiliation | 1077 | + + + | Race | Unknown | + + + | Ethnic Group | Unknown | + + + Author + + + | Author | [facility] | | | and [place] | + + + | Organization | [facility] | | | and [place] | + + + | Address | Unknown | + + + | Phone | Unavailable | + + + Support + + + + + | Name | Relationship | Address | Phone | + + + + + | Amaya Walker | ECON | [address] | | | | | [place] | | | | | [address] | | + + + + + Care Team Providers + +------+ + | Care Ice Cream Maker Name | Role | Phone | + +------+ + | Alexandra Leyva MD | PCP | | + +------+ + Reason for Visit + + + | Reason | Comments | + + + | Appointment | | + + + Encounter Details +--------+ + + + + | Date | Type | Department | Care Team | Description | +--------+ + + + + | 02/26/ | Telephone | [facility] [place] | Harpreet Momin, | Appointment | | 2019 | | PULMONARY [address] | MD [address] | | | | | [place], | [place], [place] | | | | | [place] [address] | [address] | | | | | [phone] | | | +--------+ + + + + Social History + + [...] Pulmonology | Harpreet Momin, | | | 2018 | Visit | | MD [address] | | | | | | [place] | | | | | | [address] | | | | | | | | +--------+---------+ + + + documented as of this encounter Visit Diagnoses Not on filedocumented in this encounter"
--- OUTSIDE RECORDS SUMMARY | ~2019-04-11 | XMS | Encounter Summary ---
Demographics + + + | Address | [address] | | | [place] [address] | + + + | Home Phone | | + + + | Preferred Language | Unknown | + + + | Marital Status | | + + + | Buddhist Affiliation | 1077 | + + + | Race | Unknown | + + + | Ethnic Group | Unknown | + + + Author + + + | Author | [facility] | | | and [place] | + + + | Organization | [facility] | | | and [place] | + + + | Address | Unknown | + + + | Phone | Unavailable | + + + Support + + + + + | Name | Relationship | Address | Phone | + + + + + | Amaya Walker | ECON | [address] | | | | | [place] | | | | | [address] | | + + + + + Care Team Providers + +------+ + | Care Senior Architectural Designer Name | Role | Phone | + [...] [address] | | | | | [place], | [place], [place] | | | | | [place] [address] | [address] | | | | | [phone] | | | +--------+--------+ + + + [...] [place] | | | | | | [address] | | | | | | | | +--------+---------+ + + + documented as of this encounter Visit Diagnoses Not on filedocumented in this encounter"
--- OUTSIDE RECORDS SUMMARY | ~2019-04-11 | XMS | Encounter Summary ---
Demographics + + + | Address | [address] | | | [place] [address] | + + + | Home Phone | | + + + | Preferred Language | Unknown | + + + | Marital Status | | + + + | Mormon Affiliation | 1077 | + + + | Race | Unknown | + + + | Ethnic Group | Unknown | + + + Author + + + | Author | [facility] | | | and [place] | + + + | Organization | [facility] | | | and [place] | + + + | Address | Unknown | + + + | Phone | Unavailable | + + + Support + + + + + | Name | Relationship | Address | Phone | + + + + + | Amaya Walker | ECON | [address] | | | | | [place] | | | | | [address] | | + + + + + Care Team Providers + +------+ + | Care Manager Of Network Name | Role | Phone | + [...] Description | +--------+--------+ + + + | 02/01/ | Refill | [facility] [place] | Harpreet Momin, | Medication Refill | | 2019 | | PULMONARY [address] | MD [address] | | | | | [place], | [place], [place] | | | | | [place] [address] | [address] | | | | | [phone] | | | +--------+--------+ + + + [...] [place] | | | | | | [address] | | | | | | | | +--------+---------+ + + + documented as of this encounter Visit Diagnoses Not on filedocumented in this encounter"
--- OUTSIDE RECORDS SUMMARY | ~2019-04-11 | XMS | Encounter Summary ---
Demographics + + + | Address | [address] | | | [place] [address] | + + + | Home Phone | | + + + | Preferred Language | Unknown | + + + | Marital Status | | + + + | Congregational Affiliation | 1077 | + + + | Race | Unknown | + + + | Ethnic Group | Unknown | + + + Author + + + | Author | [facility] | | | and [place] | + + + | Organization | [facility] | | | and [place] | + + + | Address | Unknown | + + + | Phone | Unavailable | + + + Support + + + + + | Name | Relationship | Address | Phone | + + + + + | Amaya Walker | ECON | [address] | | | | | [place] | | | | | [address] | | + + + + + Care Team Providers + +------+ + | Care Customer Support Analyst Name | Role | Phone | + [...] + + | 04/02/ | Telephone | [facility] [place] | Harpreet Momin, | Appointment | | 2019 | | PULMONARY [address] | MD [address] | | | | | [place], | [place], [place] | | | | | [place] [address] | [address] | | | | | [phone] | | | +--------+ + + + [...] [place] | | | | | | [address] | | | | | | | | +--------+---------+ + + + documented as of this encounter Visit Diagnoses Not on filedocumented in this encounter"
--- OUTSIDE RECORDS SUMMARY | ~2019-04-11 | XMS | Encounter Summary ---
Demographics + + + | Address | [address] | | | [place] [address] | + + + | Home Phone | | + + + | Preferred Language | Unknown | + + + | Marital Status | | + + + | Sikhism Affiliation | 1077 | + + + | Race | Unknown | + + + | Ethnic Group | Unknown | + + + Author + + + | Author | [facility] | | | and [place] | + + + | Organization | [facility] | | | and [place] | + + + | Address | Unknown | + + + | Phone | Unavailable | + + + Support + + + + + | Name | Relationship | Address | Phone | + + + + + | Amaya Walker | ECON | [address] | | | | | [place] | | | | | [address] | | + + + + + Care Team Providers + +------+ + | Care Data Control Clerk Name | Role | Phone | + [...] [address] | | | | | [place], | [place], [place] | | | | | [place] [address] | [address] | | | | | [phone] | | | +--------+--------+ + + + [...] [place] | | | | | | [address] | | | | | | | | +--------+---------+ + + + documented as of this encounter Visit Diagnoses Not on filedocumented in this encounter"
--- OUTSIDE RECORDS SUMMARY | ~2019-04-11 | XMS | Encounter Summary ---
Demographics + + + | Address | [address] | | | [place] [address] | + + + | Home Phone | | + + + | Preferred Language | Unknown | + + + | Marital Status | | + + + | Pentecostal Affiliation | 1077 | + + + | Race | Unknown | + + + | Ethnic Group | Unknown | + + + Author + + + | Author | [facility] | | | and [place] | + + + | Organization | [facility] | | | and [place] | + + + | Address | Unknown | + + + | Phone | Unavailable | + + + Support + + + + + | Name | Relationship | Address | Phone | + + + + + | Amaya Walker | ECON | [address] | | | | | [place] | | | | | [address] | | + + + + + Care Team Providers + +------+ + | Care Bull Rider Name | Role | Phone | + [...] [address] | | | | | [place], | [place], [place] | | | | | [place] [address] | [address] | | | | | [phone] | | | +--------+ + + + [...] | 2018 | Visit | | MD [address]ULA | | | | | | [place] | | | | | | [address] | | | | | | | | +--------+---------+ + + + documented as of this encounter Visit Diagnoses Not on filedocumented in this encounter"
--- OUTSIDE RECORDS SUMMARY | ~2019-04-11 | XMS | Encounter Summary ---
Demographics + + + | Address | [address] | | | [place] [address] | + + + | Home Phone | | + + + | Preferred Language | Unknown | + + + | Marital Status | | + + + | Christianity Affiliation | 1077 | + + + | Race | Unknown | + + + | Ethnic Group | Unknown | + + + Author + + + | Author | [facility] | | | and [place] | + + + | Organization | [facility] | | | and [place] | + + + | Address | Unknown | + + + | Phone | Unavailable | + + + Support + + + + + | Name | Relationship | Address | Phone | + + + + + | Amaya Walker | ECON | [address] | | | | | [place] | | | | | [address] | | + + + + + Care Team Providers + +------+ + | Care Corporate Staff Accountant Name | Role | Phone | + [...] [address] | | | | | [place], | [place], [place] | | | | | [place] [address] | [address] | | | | | [phone] | | | +--------+ + + + [...] [place] | | | | | | [address] | | | | | | | | +--------+---------+ + + + documented as of this encounter Visit Diagnoses Not on filedocumented in this encounter"
--- OUTSIDE RECORDS SUMMARY | ~2019-04-11 | XMS | Encounter Summary ---
Demographics + + + | Address | [address] | | | [place] [address] | + + + | Home Phone | | + + + | Preferred Language | Unknown | + + + | Marital Status | | + + + | Zoroastrianism Affiliation | 1077 | + + + | Race | Unknown | + + + | Ethnic Group | Unknown | + + + Author + + + | Author | [facility] | | | and [place] | + + + | Organization | [facility] | | | and [place] | + + + | Address | Unknown | + + + | Phone | Unavailable | + + + Support + + + + + | Name | Relationship | Address | Phone | + + + + + | Amaya Walker | ECON | [address] | | | | | [place] | | | | | [address] | | + + + + + Care Team Providers + +------+ + | Care Paver Operator Name | Role | Phone | [...] [address] | | | | | [place], | [place], [place] | | | | | [place] [address] | [address] | | | | | [phone] | | | +--------+--------+ + + + [...] [place] | | | | | | [address] | | | | | | | | +--------+---------+ + + + documented as of this encounter Visit Diagnoses Not on filedocumented in this encounter"
--- OUTSIDE RECORDS SUMMARY | ~2019-04-11 | XMS | Clinical Summary ---
Demographics + + + | Address | [address] | | | [place] [address] | + + + | Home Phone | | + + + | Preferred Language | Unknown | + + + | Marital Status | | + + + | Rastafarian Affiliation | 1077 | + + + | Race | Unknown | + + + | Ethnic Group | Unknown | + + + Author + + + | Author | [facility] | | | and [place] | + + + | Organization | [facility] | | | and [place] | + + + | Address | Unknown | + + + | Phone | Unavailable | + + + Support + + + + + | Name | Relationship | Address | Phone | + + + + + | Amaya Walker | ECON | [address] | | | | | [place] | | | | | [address] | | + + + + + Care Team Providers + +------+ + | Care Metal Fabricating Shop Helper Name | Role | Phone | + [...] | 02/01/ | Refill | | Harpreet Momin, | [...] [place] | | | | | | [address] | | | | | | | [...] +--------+ +---------+--------+ | MEDICARE | MEDICA | [id number] | | [phone] | | Medica | | | RE | | 013-Pr | 5 | | re | | | PART A | | esent | | | | | | AND B | | | | | | + +--------+ +--------+ +---------+--------+ | | TRICAR | [id number] | | [phone] | | Indemn | [...] | 1950 | [phone] | [place] [address] | | | sl[place] | | | 8 (Home) | | + +--------+ +--------+ + + Advance Directives Patient has advance care planning documents on file. For more information, please contact:[facility] [place] [address]
[~2019-04-11 15:18] MED LIST changes: +ALPRAZOLAM0.25 MG PO; +GUAIFENESIN-CODE5 ML PO
--- OUTSIDE RECORDS SUMMARY | 2019-04-11 15:20 | XMS ---
PreManage Notification: VALENTIN ENCISO Security Oyster Sorter Events No recent Security Events currently on file CRITERIA MET - Group Notification - [facility] CARE PROVIDERS RAYMOND SAWYER Hospitalist 06/15/2018-Current PHONE: Unknown ERLIN RODRIGUEZ Case or Occupational Therapy Assist 11/03/2017-Current PHONE: [phone] Nahum Brandon MD Primary Care Current PHONE: Unknown orgagan Case or Occupational Therapy Assist Current PHONE: Unknown Meera BRANDON Current PHONE: Unknown Giacomo has no Care Guidelines for this patient. Care History Medical/Surgical 06/15/2018 [facility] - Patient is currently established with [facility]. If patient is seen in the ED during business hours. Please contact CHWs at [facility]. Care Recommendation: This patient has had 5 or more Emergency Department visits in the last 12 months.\T\nbsp; Patient requires education on the scope and purpose of the ED as an acute care provider not a Primary Care Provider and should not be utilized for chronic conditions.\T\nbsp; These are guidelines and the provider should exercise clinical judgment when providing care. E.D. VISIT COUNT (12 MO.) 3 [facility]. TOTAL 3 NOTE: Visits indicate total known visits. ED/UCC VISIT TRACKING (12 MO.) 04/11/2019 15:19 [facility] [place] TYPE: Emergency COMPLAINT: - R LEG PAIN 06/29/2018 15:45 [facility] [place] TYPE: Emergency COMPLAINT: - SHORT OF BREATH 06/14/2018 16:32 [facility] [place] TYPE: Emergency COMPLAINT: - SOB DIAGNOSES: - Allergy status to other drugs, medicaments and biological substances status - Other alf (current) drug therapy - Bee allergy status - Shortness of breath - Personal history of nicotine dependence - Chronic obstructive pulmonary disease, unspecified - Other chest pain INPATIENT VISIT TRACKING (12 MO.) No inpatient visits to display in this time frame [email or web address]
[2019-04-11] MEDS ORDERED: NEURONTIN300 MG PO (18:23)
== END 2019-04-11 18:51 | disposition home or self-care (01) ==
LOC: ED 15:18
DX: G62.9 Polyneuropathy, unspecified (principal); J44.9 Chronic obstructive pulmonary disease, unspecified; Z87.891 Personal history of nicotine dependence; Z91.038 Other insect allergy status; Z91.09 Other allergy status, other than to drugs and biological substances; Z79.899 Other long term (current) drug therapy; Z79.52 Long term (current) use of systemic steroids
CPT/HCPCS: 71045; 80053; 85025; 85610; 85651; 99283-25

== ENCOUNTER 2020-01-17 12:18 | Inpatient (IN) | payer MEDICARE, OTHER ==
[~2020-01-17] VITALS: Ht 157.5 cm; Wt 67.1 kg
[~2020-01-17 12:18] MED LIST changes: +NEURONTIN300 MG PO; +VITAMIN D350 MC3 PO; -VITAMIN D5000 UNIT PO
--- OUTSIDE RECORDS SUMMARY | 2020-01-17 12:22 | XMS ---
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 Care History Medical/Surgical 06/15/2018 [facility] - Patient is currently established with [facility]. If patient is seen in the ED during business hours. Please contact [facility] at [facility]. Care Recommendation: This patient has had 5 [...] providing care. E.D. VISIT COUNT (12 MO.) 2 [facility]. TOTAL 2 NOTE: Visits indicate total known visits. 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
[2020-01-17] MEDS ORDERED: LIPITOR10 MG PO (16:28)
[2020-01-17] MEDS ORDERED: DALIRESP500 MCG PO (16:29)
[2020-01-17] MEDS ORDERED: VOLTAREN100 GM TOP (16:31)
[2020-01-17] MEDS ORDERED: FAMOTIDINE20 MG PO (16:32)
--- NOTE | 2020-01-17 16:58 | EKG ---
[facility] [address] [facility] [place], [place] [address] Signed Sinus tachycardia Otherwise normal ECG When compared with ECG of 29-JUN-2018 16:15, No significant change was found Confirmed by PRADEEP HOPKINS MD ([id number]) on 01/17/2020 4:58:47 PM Electronically Signed By: PRADEEP HOPKINS MD 01/17/20 1658 PATIENT NAME: VALENTIN ENCISO Electrocardiogram DATE OF : 46 PHYSICIAN: PRADEEP HOPKINS MD REPORT #: [id number] REPORT IS CONFIDENTIAL AND NOT TO BE RELEASED WITHOUT AUTHORIZATION
[2020-01-18] MEDS ORDERED: LEVOTHYROXINE75 MCG PO (09:02)
[2020-01-18] MEDS ORDERED: TESSALON PERLE100 MG PO (10:03)
[2020-01-18] MEDS ORDERED: NORCO 5-325 TA1 EACH PO (10:04)
[2020-01-18] MEDS ORDERED: ADVIL200 MG PO (10:04)
[2020-01-18] MEDS ORDERED: NYSTATIN15 GM TOP (10:05)
[2020-01-18] MEDS ORDERED: MULTI VITAMIN1 EACH PO (10:05)
[2020-01-22] MEDS ORDERED: DOXYCYCLINE HY100 MG PO (09:17)
[2020-01-22] MEDS ORDERED: METOPROLOL SUCC25 MG PO (09:17)
[2020-01-22] MEDS ORDERED: PREDNISONE20 MG PO (09:20)
== END 2020-01-22 14:13 | disposition home or self-care (01) | DRG 190 ==
LOC: ED 12:18 → MS 12:20 → ED 12:20 → MS 12:20
PROVIDERS: ADMIT Student in an Organized Health Care Education/Training Program
DX: J44.1 Chronic obstructive pulmonary disease with (acute) exacerbation (principal); J18.9 Pneumonia, unspecified organism; J44.0 Chronic obstructive pulmonary disease with (acute) lower respiratory infection; I10 Essential (primary) hypertension; K21.9 Gastro-esophageal reflux disease without esophagitis; E03.9 Hypothyroidism, unspecified; G89.4 Chronic pain syndrome; R00.0 Tachycardia, unspecified; R21 Rash and other nonspecific skin eruption; F39 Unspecified mood [affective] disorder; Z99.81 Dependence on supplemental oxygen; Z79.1 Long term (current) use of non-steroidal anti-inflammatories (NSAID); Z79.82 Long term (current) use of aspirin; Z79.51 Long term (current) use of inhaled steroids; Z79.52 Long term (current) use of systemic steroids; Z79.899 Other long term (current) drug therapy
CPT/HCPCS: 36415; 71045; 71046; 80048; 80053; 82550; 83605; 83735; 83880; 84484; 85025; 87070; 87205; 87502; 93005; 93010; 94640; 94667; 94668; 94760; 96365; 96375; 97116; 97162; 97530; 99285-25; J0456; J0696; J1650; J2930; J3475; J7060; J7121; J7512

== ENCOUNTER 2022-05-13 10:50 | Day surgery (SDC) | payer MEDICARE, OTHER ==
[~2022-05-13] VITALS: Ht 157.5 cm; Wt 67.3 kg
[~2022-05-13 10:50] MED LIST changes: +ADVIL200 MG PO; +FAMOTIDINE20 MG PO; +LIPITOR10 MG PO; +METOPROLOL SUCC25 MG PO; +NORCO 5-325 TA1 EACH PO; +VOLTAREN100 GM TOP
--- NOTE | 2022-05-13 14:15 | NUR ---
PT DENIES CONCERNS AND VSS. WATER AND PUDDING AT BEDSIDE AND CALL LIGHT WITHIN REACH.
--- NOTE | 2022-05-13 14:22 | NUR ---
05/13/22 1422 Jeanne García 1337 PT ARRIVED IN PACU SLEEPY. 1345 COUGHING. ORALLY SUCTIONED. 1350 NO C/O'S. SPINAL AT L-1. 1415 TO DS. REPORT GIVEN TO KELLY.
--- NOTE | 2022-05-13 15:59 | NUR ---
1500 PATIENT COMPLAINING OF 5/10 PAIN. SEE MAR FOR PRN MEDICATION GIVEN. PATIENT REPOSITIONED. 1520 PATIENT ALERT AND ORIENTED. BREATHING EQUAL AND UNLABORED. OXYGEN SATURATIONS ABOVE 95% ON TWO LITERS OF OXYGEN. PATIENT HAS MODERATE AMOUNT OF RED DRAINAGE ON ABD PAD. 1545 PATIENT NASEAUATED. PATIENT HAD 300 MLS OF EMESIS. 1554 PRN ZOFRAN GIVEN. COLD WAS CLOTH APPLIED. PATIENT REQUESTED TO GO TO THE BATHROOM. AMBULATED WITH ASSISTANCE FROM THIS RN. PATIENT WAS UNABLE TO VOID. BACK TO THE BED. CALL LIGHT WITHIN REACH NO QUESTIONS OR FUTHER NEEDS.
--- NOTE | 2022-05-13 17:09 | NUR ---
1615 VITAL SIGNS COMPLETE. PATIENT IS ALERT AND ORIENTED. BREATHING EQUAL AND UNLABORED. OXYGEN SATURATIONS ON 95% ON 2 LITERS. PATIENT HAS SMALL AMOUNT OF DRAINAGE OF RED ON KRYS PAD. PATIENT NAUSEA IS IMPROVING. PATIENT HAS 3/10 PAIN. DENIES NEEDING ANYTHING FOR PAIN. PATIENT WAS ABLE TO VOID. RED TINGED URINE. 1635 PATIENT DISCHARGE CRITERIA MET. PATIENT WAS GIVEN DISCHARGE INSTRUCTIONS AND UNDERSTOOD. IV D/C'D WNL. WAITING FOR PATIENT RIDE
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
--- NOTE | 2022-05-14 19:41 | OR ---
[facility] [address] [place], [place] [address] Signed DATE OF OPERATION: 05/13/2022 SURGEON: Kenyon Lee MD PREOPERATIVE DIAGNOSIS: A 10 mm right renal pelvis calculus, poised to descend into the right ureter. POSTOPERATIVE DIAGNOSES: 1. A 10 mm right renal pelvis calculus, poised to descend into the right ureter. 2. Mild meatal stenosis. 3. A short low caliber bulbar urethral stricture. NAMES OF PROCEDURES: 1. Meatal dilation using Avon sounds from 18-Yemeni to 28-Yemeni. 2. Diagnostic cystoscopy with right retrograde pyelogram. 3. Insertion of indwelling 6 x 24 cm double-J ureteral stent into the right collecting system. ANESTHESIA: Spinal. COMPLICATIONS: None. SPECIMENS: None. DRAINS: A 6 x 24 cm double-J ureteral stent inserted in the right collecting system. INDICATIONS FOR PROCEDURE: Mr. Enciso is a very pleasant 71-year-old gentleman with a past medical history significant for end-stage COPD, who was referred to me by Dr. Pradeep Hopkins after a 10 mm stone was found incidentally on a CT scan performed for another indication. The 10 mm stone was noted to be present within the right renal pelvis and poised to descend to the right ureter. In an effort to prevent passage of such a large stone that would likely produce significant mortality and/or morbidity risks in a patient with an end-stage COPD, Dr. Hopkins referred him to me to be evaluated for ureteral stent placement. As of now, the patient is not medically clear to undergo stone extraction surgery, so in the interim, the patient has agreed to undergo cystoscopy with right ureteral stent Electronically Signed By: KENYON LEE MD 05/14/221940 PATIENT NAME: VALENTIN ENCISO OPERATIVE REPORT DATE OF : 46 REPORT #: [id number] PHYSICIAN: KENYON LEE MD PCP: PRADEEP HOPKINS MD REPORT IS CONFIDENTIAL AND NOT TO BE RELEASED WITHOUT AUTHORIZATION [facility] [address] [place], [place] [address] Signed insertion as a preventative measure to avoid any potential obstruction of his right ureter in the future. The patient understands that he is not a good operative candidate, but would want to consider shockwave lithotripsy in the future, perhaps in approximately six months when he is due for his next ureteral stent exchange. For now, he presents today to undergo an initial right ureteral stent insertion. FINDINGS: 1. On visual inspection of the external genitalia, the patient is not circumcised and he has a glanular meatus. However, of note, the meatus appears to be mildly stenotic and I am unable to pass a 22-Yemeni sheath into the urethra. His meatus was therefore dilated from 18-Yemeni to 28-Yemeni using Alexei sounds without difficulty. 2. Diagnostic cystoscopy reveals no evidence of any suspicious masses, lesions, or stones. Bilateral ureteral orifices are in their normal anatomic location. There is no significant bladder wall trabeculation noted on exam today. 3. Ureteroscopy, does reveal a short and low caliber stricture present at the bulbar urethra. With just a little bit of effort, I am able to pass a 22-Yemeni sheath through the low caliber stricture and into the patient's bladder. 4. Right retrograde pyelogram reveals a patent right ureter all the way up to the level of the UPJ. I am able to faintly appreciate the large 10 mm stone within the right renal pelvis. There is no evidence of any hydronephrosis or blunting of the renal calyces. Also no evidence of any filling defects within the entire length of the ureter. 5. A 6 x 24 cm double-J ureteral stent was inserted into the patient's collecting system on the right side under direct visualization without difficulty. Once the wire was pulled, an adequate coil was seen within the right renal pelvis. An adequate distal coil was noted on cystoscopy. DESCRIPTION OF PROCEDURE: After informed consent was obtained, the patient was taken back to the operating room. He is transferred from the [facility] to the operating room table, where spinal anesthesia was induced. He was placed in the dorsal lithotomy position and his genitalia were prepped and draped in standard sterile fashion. His meatus was dilated using Avon sounds from 18-Yemeni to 28-Yemeni without difficulty. I then passed a 22-Yemeni three sheath into the urethra and a ureteroscopy was performed. Please see above findings. I was able to see an obvious low caliber and short bulbar urethral stricture. I was able to pass my 22.5 Yemeni sheath through the strictured urethra and into the bladder without any difficulty. Diagnostic cystoscopy was then performed. Please see above findings. I then turned my attention to the right ureteral orifice. A cone-tipped catheter was advanced through the scope and into the distal right ureter and a right retrograde pyelogram was performed. Please see above findings. I then passed a 0.035 Sensor wire through the cystoscope and into the right ureter and right collecting system. The Sensor wire passed quite easily and placement was confirmed on fluoroscopy. Electronically Signed By: KENYON LEE MD 05/14/221940 PATIENT NAME: VALENTIN ENCISO OPERATIVE REPORT DATE OF : 46 REPORT #: [id number] PHYSICIAN: KENYON LEE MD PCP: PRADEEP HOPKINS MD REPORT IS CONFIDENTIAL AND NOT TO BE RELEASED WITHOUT AUTHORIZATION [facility] [address] [place], [place] [address] Signed Over the wire, I passed a 6 x 24 cm double-J ureteral stent into the right collecting system under direct visualization without difficulty. Once I pulled the Sensor wire, I was able to see an excellent coil within the right renal pelvis. A distal coil was clearly seen on cystoscopy. The patient's bladder was then drained and the cystoscope was removed. The procedure was then terminated. The patient tolerated the procedure well without any complication. He will now be transferred to the postanesthesia care unit in stable condition. DISPOSITION: I called and left a voicemail with the patient's and gave her a clear description of today's procedure and notified her that he will be sent home on some oral pain control and antibiotics for the next seven days. Mr. Enciso and I had a long discussion preoperatively about the potential for treating his stone in approximately six months when he is due for another stent exchange. I told him today that I would consider an ESWL, however, this will require at least 1 hour of general anesthesia time. This will need to be discussed with Dr. Pradeep Hopkins as the patient will need medical clearance prior to the next procedure if he does choose to undergo ESWL. This will be discussed in the future with Dr. Hopkins. Otherwise, the patient will return to clinic in approximately 4 to 5 months in preparation for another ureteral stent exchange, which will need to be performed in October 2022 or November 2022. Kenyon Lee MD AR/MODL /[id number] cc: Pradeep Hopkins MD Copies: PRADEEP HOPKINS MD ~ Electronically Signed By: KENYON LEE MD 05/14/22 194 PATIENT NAME: VALENTIN ENCISO OPERATIVE REPORT DATE OF : 46 REPORT #: [id number] PHYSICIAN: KENYON LEE MD PCP: PRADEEP HOPKNIS MD REPORT IS CONFIDENTIAL AND NOT TO BE RELEASED WITHOUT AUTHORIZATION
== END 2022-05-13 16:35 | disposition home or self-care (01) ==
LOC: DS 10:50
PROVIDERS: ATTEND Urology
PROC: 0T7D8ZZ Dilation of Urethra, Via Natural or Artificial Opening Endoscopic (ICD-10-PCS; principal; 2022-05-13 14:10)
PROC: 0T9680Z Drainage of Right Ureter with Drainage Device, Via Natural or Artificial Opening Endoscopic (ICD-10-PCS; 2022-05-13 14:10)
DX: N20.0 Calculus of kidney (principal); N35.912 Unspecified bulbous urethral stricture, male; J44.9 Chronic obstructive pulmonary disease, unspecified; E03.9 Hypothyroidism, unspecified; J96.11 Chronic respiratory failure with hypoxia; E78.5 Hyperlipidemia, unspecified; Z91.030 Bee allergy status
CPT/HCPCS: 74420; C1769; C2617; J0696; J1100; J2001; J2250; J2405; J2704; J7121; Q9967

== ENCOUNTER 2022-08-12 08:37 | Day surgery (SDC) | payer MEDICARE, OTHER ==
[~2022-08-12] VITALS: Ht 157.5 cm; Wt 67.3 kg
[2022-08-12] MEDS ORDERED: XOPENEX1.25 MG/3 INH (08:59)
--- NOTE | 2022-08-12 13:13 | NUR ---
08/12/22 1313 Aminata Day 1300- PT ARRIVES TO PACU REACTIVE. PT IS NOT FOLLOWING COMMANDS. PT'S MOUTH SUCTIONED, SECRETIONS REMOVED. RESP EVEN. OXYGEN SAT HIGH 90'S TO 100% ON 6L VIA MASK. PT USES OXYGEN CHRONICALLY AT 3L. PT IN HIGH FOWLERS POSITION. 1306- OXYGEN TITRATED DOWN TO 3L VIA NC.
--- NOTE | 2022-08-12 13:48 | NUR ---
PATIENT STANDING AT BEDSIDE ATTEMPTING TO USE URINAL WITH STAND BY ASSIST DURING REPROT. HE DENIES NAUSEA BUT ENDORSES 2/10 URETHERAL PAIN. PATIENT PRODUCES 10 ML BLOODY MIXED WITH URINE. ASSISTED INTO BED AND PROVIDED WITH WARM BLANKET AND CALL LIGHT. REFUSES OFFER OF PRN MEDICATION FOR PAIN AT THIS POINT.
--- NOTE | 2022-08-12 14:11 | NUR ---
PT TURNS ON HIS CALL LIGHT TO STAND UP AND USE A URINAL. HE IS ABLE TO VOID APPROX. 10MLS OF BLOOD TINGED URINE. HE IS COMPLAINING OF FEELING WEAK, BUT HAS NO COMPLAINTS OF NAUSEA. HE IS TOLERATING WATER AND PUDDING.
--- NOTE | 2022-08-12 15:01 | NUR ---
STEADY ON FEET WITH ONE PERSON STAND BY ASSIST WHILE STANDING AT THE BEDSIDE AND ATTEMPTING TO URINATE. CONTINUES TO DENY NAUSEA. PT IS UNABLE TO VOID MORE THAN 10 MLS BLOOD MIXED WITH URINE. BLADDER SCAN USED TO FIND 167ML VOLUME AT 1455. REPORT GIVEN TO PRIMARY NURSE. IVF OPEN AND PATIENT DRINKING FLUIDS TO ENCOURAGE OUTPUT.
--- NOTE | 2022-08-12 16:34 | NUR ---
THIS RN CHECKS ON THE PT. HE HAS BEEN ABLE TO VOID 25MLS OF BLOOD TINGED URINE. HE IS GETTING DRESSED TO GO HOME. HIS IS CALLED TO START MAKING HER WAY HERE.
--- NOTE | 2022-08-12 17:12 | NUR ---
LE 1700: PT IS HELPED GETTING DRESSED. HE IS TAKEN TO PERSONAL VEHICLE VIA . HE IS ABLE TO TRANSFER HIMSELF FROM TO PERSONAL VEHICLE.
--- NOTE | 2022-08-13 14:41 | OR ---
[facility] [address] [facility] [place], [place] [address] Signed DATE OF OPERATION: 08/12/2022 SURGEON: Kenyon Lee MD PREOPERATIVE DIAGNOSES: 1. A 10 mm right renal calculus, poised to descend into the right ureter. 2. Status post cystoscopy with right ureteral stent insertion in May 2022. POSTOPERATIVE DIAGNOSIS: A 12 mm lower pole right renal calculus, status post insertion of an indwelling right ureteral stent. NAMES OF PROCEDURES: 1. Diagnostic cystoscopy with right retrograde pyelogram. 2. Right flexible nephroscopy with laser lithotripsy and basket extraction of stone fragments. 3. Right ureteral stent exchange. ANESTHESIA: General. ESTIMATED BLOOD LOSS: Minimal. COMPLICATIONS: None. SPECIMENS: Fragments of right renal calculus sent to the lab for stone analysis. DRAINS: A 6 x 22 cm double-J ureteral stent inserted into the right collecting system. INDICATIONS FOR PROCEDURE: Mr. Enciso is a very pleasant 71-year-old gentleman with a history significant for end-stage COPD, who was initially referred to me by Dr. Pradeep Hopkins for treatment when he underwent a CT scan, which revealed an incidental finding of a 10-mm right renal calculus that was poised to descend into the right ureter. In an effort to avoid any active ureteral obstruction, the decision was made at that time to place a right indwelling ureteral stent. This was performed in May 2022. Since that time, the Electronically Signed By: KENYON LEE MD 08/13/22 1441 PATIENT NAME: VALENTIN ENCISO OPERATIVE REPORT DATE OF : 46 REPORT #: [id number] PHYSICIAN: KENYON LEE MD PCP: PRADEEP HOPKINS MD REPORT IS CONFIDENTIAL AND NOT TO BE RELEASED WITHOUT AUTHORIZATION [facility] [address] [place], [place] [address] Signed patient has been experiencing discomfort in his bladder along with urinary frequency related to his indwelling right ureteral stent. Only a few days ago, he underwent urine culture, which did not reveal any significant growth. He presents today to undergo definitive extraction of his now 12-mm right lower pole renal calculus. OPERATIVE FINDINGS: 1. On cystoscopy, there was no evidence of any suspicious masses, lesions, or stones. Bilateral ureteral orifices are in their normal anatomic location. There is an indwelling right ureteral stent that is moderately calcified. The indwelling ureteral stent was removed fully intact without difficulty. 2. Right retrograde pyelogram was performed after removal of the stent, which revealed a filling defect in the lower pole of the right renal pelvis consistent with his known renal calculus. There were no other filling defects noted on retrograde pyelogram. 3. Right flexible nephroscopy was performed and the large 12 mm stone was found in the lower pole of his right kidney. The stone was fragmented using a holmium laser at 8 and 1 settings using a 270 micron fiber. The stone fragmented quite easily and most of the stone was fragmented down to 1 mm fragments or less. 4. I extracted all of the significantly sized stone fragments using a Zero tip basket without difficulty. All the remaining fragments were small enough to pass alongside the stent with adequate hydration. At the end of the procedure, a new 6 x 22 cm double-J ureteral stent was inserted into the right ureter under direct visualization without difficulty. DESCRIPTION OF PROCEDURE: After informed consent was obtained, the patient was taken back to the operating room. He was transferred from the [facility], where general anesthesia was induced. He was placed in the dorsal lithotomy position and his genitalia were prepped and draped in standard sterile fashion. Using a 30-degree lens on a 22.5-Thai introducer, rigid cystoscope was inserted through the urethra and into his bladder under direct visualization. Panendoscopic views of the bladder were then obtained. Please see above findings. The existing indwelling right ureteral stent was removed using graspers without difficulty. It was noted to be moderately calcified. It was removed completely intact from the bladder. I then advanced a cone-tipped catheter to the right ureteral orifice and a right retrograde pyelogram was performed. Please see above findings. I then passed a 0.035 Sensor wire through the right ureteral orifice and up to the right collecting system. Adequate placement of the wire was confirmed on fluoroscopy. Over the wire, I passed a 13/15 ureteral access sheath into the right collecting system under fluoroscopic guidance. A retrograde pyelogram confirmed adequate placement of the sheath. I then advanced a flexible ureteroscope through the sheath and into the right renal pelvis. A diagnostic right nephroscopy was performed. Please see above findings. The stone was located in the lower pole of the right kidney, it was fragmented using a holmium laser and a 270 micron fiber. The stone fragmented quite easily and a good deal Electronically Signed By: KENYON LEE MD 08/13/22 1441 PATIENT NAME: VALENTIN ENCISO OPERATIVE REPORT DATE OF : 46 REPORT #: [id number] PHYSICIAN: KENYON LEE MD PCP: PRADEEP HOPKINS MD REPORT IS CONFIDENTIAL AND NOT TO BE RELEASED WITHOUT AUTHORIZATION [address] [address] Signed of the stone was dusted down to 1 mm or less stone fragments. All the significantly sized stones were successfully extracted using a Zero tip basket. Once I was satisfied that all the significantly sized stones had been extracted, I removed the flexible ureteroscope and then inserted a Sensor wire through the sheath and into the right renal pelvis. The ureteral access sheath was then removed fully intact. Over the wire, I passed a 6 x 22 cm double-J ureteral stent into the right collecting system. The stent was placed with a string attached. The string will be secured to the patient's penis at the end of the procedure. An adequate proximal coil was noted on fluoroscopy after placement of the stent. An adequate distal coil was seen on cystoscopy. The patient's bladder was then drained. The cystoscope was removed. Again, the string attached to the stent was secured to the patient's penis. The procedure was then terminated. The patient tolerated the procedure well without any complications. He will now be transferred to the postanesthesia care unit in stable condition. DISPOSITION: I discussed the details of today's procedure with the patient's and answered all of her questions. He has been instructed to remove his indwelling ureteral stent using the string attached on August 16. He will be sent home today with Cipro 250 mg p.o. b.i.d. for 7 days along with oxycodone 5 mg 1/2 tablet q.6 hours p.r.n. pain. He has been scheduled to return to clinic in approximately 6 to 8 weeks for his 1st postoperative visit. MD EDUARDO Erickson/SOPHIA /[id number] cc: Pradeep Hopkins MD Copies: PRADEEP HOPKINS MD ~ Electronically Signed By: KENYON LEE MD 08/13/22 1441 PATIENT NAME: VALENTIN ENCISO OPERATIVE REPORT DATE OF : 46 REPORT #: [id number] PHYSICIAN: KENYON LEE MD PCP: PRADEEP HOPKINS MD REPORT IS CONFIDENTIAL AND NOT TO BE RELEASED WITHOUT AUTHORIZATION
== END 2022-08-12 17:05 | disposition home or self-care (01) ==
LOC: DS 08:37
PROVIDERS: ATTEND Urology
PROC: 0TC68ZZ Extirpation of Matter from Right Ureter, Via Natural or Artificial Opening Endoscopic (ICD-10-PCS; principal; 2022-08-12 10:35)
PROC: 0T768DZ Dilation of Right Ureter with Intraluminal Device, Via Natural or Artificial Opening Endoscopic (ICD-10-PCS; 2022-08-12 10:35)
DX: N20.0 Calculus of kidney (principal); J44.9 Chronic obstructive pulmonary disease, unspecified; Q53.10 Unspecified undescended testicle, unilateral; Z79.82 Long term (current) use of aspirin; J96.11 Chronic respiratory failure with hypoxia; E03.9 Hypothyroidism, unspecified; K21.9 Gastro-esophageal reflux disease without esophagitis; E78.5 Hyperlipidemia, unspecified
CPT/HCPCS: 74420; 82365; C1769; C2617; J0131; J0690; J1100; J2001; J2405; J2704; J3010; J7121; Q9967